=== PATIENT | female | born 1950 | race Caucasian/White ===

== ENCOUNTER 2018-02-16 15:07 | Emergency (ER) | payer MEDICARE ==
[2018-02-16 15:18] VITALS: BP 136/78
--- NOTE | 2018-02-16 15:46 | UC ---
Kristy Butler Gabriel, scribed for Casimiro Izquierdo MD on 02/16/18 at 1543 . Respiratory Complaint HPI - HPI Summary HPI Summary: This patient is a 67 year old F presenting to [facility] with a chief complaint of a dry cough that has been worse the past three days. She began coughing a week ago but states it has gotten worse. The patient rates the pain 0/10 in severity. Symptoms alleviated by nothing, she has taken mucinex with no relief. Patient reports post nasal drip, rhinorrhea, and clear nasal discharge. Patient denies fever, chills, and ear pain. Pt viveros exposure to sick persons but they recovered. Pt had bronchitis years ago. - History of Current Complaint Chief Complaint: UCRespiratory Stated Complaint: COUGH Time Seen by Provider: 02/16/18 15:34 Hx Obtained From: Patient Onset/Duration: Lasting Weeks, Still Present, Worse Since - 3 days Timing: Constant Severity Initially: Mild Severity Currently: Moderate Pain Intensity: 0 Pain Scale Used: 0-10 Numeric Character: Cough: Nonproductive Associated Signs And Symptoms: Positive: Negative - fever, chills, and ear pain - Allergies/Home Medications Allergies/Adverse Reactions: Allergies Allergy/AdvReac Type Severity Reaction Status Date / Time No Known Allergies Allergy Verified 08/25/16 16:45 PMH/Surg Hx/FS Hx/Imm Hx Cardiovascular History: Hypertension Cancer History: Breast Cancer - Surgical History Surgical History: Yes Surgery Procedure, Year, and Place: LEFT Breast partial mastectomy - Family History Known Family History: Positive: Cardiac Disease - CHF, Hypertension Negative: Diabetes - Social History Lives: With Family Alcohol Use: Rare Substance Use Type: None Smoking Status (MU): Never Smoked Tobacco Review of Systems ENT: Nasal Discharge, Other - post nasal drip Respiratory: Cough - dry All Other Systems Reviewed And Are Negative: Yes Physical Exam - Summary Physical Exam Summary: General: well-appearing, no pain distress Skin: warm, color reflects adequate perfusion, dry Head: normal Eyes: EOMI, AMENA ENT: positive rhinorrhea, mild posterior pharynx erythema Neck: supple, nontender Respiratory: CTA, breath sounds present, dry cough, Cardiovascular: RRR Abdomen: soft, nontender Bowel: present Musculoskeletal: normal, strength/ROM intact, no pedal edema Neurological: normal, sensory/motor intact, A&O x3 Psychological: affect/mood appropriate Triage Information Reviewed: Yes Vital Signs: Initial Vital Signs Temp 98.5 F 02/16/18 15:14 Pulse 86 02/16/18 15:14 Resp 18 02/16/18 15:14 BP 136/78 02/16/18 15:14 Pulse Ox 96 02/16/18 15:14 Vital Signs Reviewed: Yes UC Diagnostic Evaluation - Laboratory O2 Sat by Pulse Oximetry: 96 Respiratory Course/Dx - Course Course Of Treatment: Medications reviewed. Allergies noted. 7 DAYS OF URI/ BRONCHITIS SX. WE DISCUSSED SX TREATMENT AND THE USE OF ABX IN BRONCHITIS. WE DISCUSSED USUALLY START ABX WITH 10 DAYS OF SX. PATIENT PREFERS TO HAVE ABX RX AT THIS TIME. F/U PMD; REEVAL IF WORSE. - Differential Dx/Diagnosis Provider Diagnoses: BRONCHITIS Discharge - Sign-Out/Discharge Documenting (check all that apply): Discharge/Admit/Transfer - Discharge Plan Condition: Stable Disposition: HOME Prescriptions: Azithromyxin SID (NF) [Z-Sid (Zithromax) 250 mg tabs #6] 2 tab PO .TODAY, THEN 1 DAILY #6 tab Patient Education Materials: Acute Bronchitis (ED) Referrals: Catia Cordova NP [Primary Care Provider] - Additional Instructions: FOLLOW UP WITH YOUR DOCTOR. GET RECHECKED FOR ANY WORSENING OF YOUR CONDITION OR QUESTIONS OR CONCERNS. - Billing Disposition and Condition Condition: STABLE Disposition: HOME The documentation as recorded by the Kristy stewart Gabriel accurately reflects the service I personally performed and the decisions made by me, Casimiro Izquierdo MD.
== END 2018-02-16 15:45 | disposition home or self-care (01) ==
LOC: UCEAST 15:07
DX: J40 Bronchitis, not specified as acute or chronic (principal)
CPT/HCPCS: 99212; G0463

== ENCOUNTER 2018-06-21 15:54 | Emergency (ER) | payer MEDICARE ==
[2018-06-21 16:18] VITALS: BP 123/81
--- NOTE | 2018-06-21 17:00 | UC ---
Skin Complaint HPI - HPI Summary HPI Summary: Pt is a 68 year old female presenting to the with a chief complaint of a rash on her lower left side. The rash feels like a bad sunburn. She first noticed it about 2-3 hours ago, where she first noticed the pain. The pt denies any itching. The pt reports a hx of high cholesterol, hypertension, adult acne, breast cancer, as well as occasional alcohol use. The pt denies any smoking or drug use. The pt reports her sister has MS, and her other sister is prehypertensive. 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 Character: Pain, Redness Aggravating Factor(s): Clothing Associated Signs & Symptoms: Positive: Negative - itching, Rash Related History: Other: - potential shingles - Allergy/Home Medications Allergies/Adverse Reactions: Allergies Allergy/AdvReac Type Severity Reaction Status Date / Time No Known Allergies Allergy Verified 06/21/18 16:18 Home Medications: Home Medications Lecithin 1,200 mg PO DAILY 06/21/18 [History] l-Lysine 1,000 mg PO DAILY PRN 06/21/18 [History Confirmed 06/21/18] Review of Systems Constitutional: Negative - fever Skin: Negative - itching, Rash - left lower back and flank, painful All Other Systems Reviewed And Are Negative: Yes PMH/Surg Hx/FS Hx/Imm Hx Previously Healthy: No - hx of adult acne Endocrine History: Other Other Endocrine History: hyperlipidemia Cardiovascular History: Hypertension Cancer History: Breast Cancer - Surgical History Surgical History: Yes Surgery Procedure, Year, and Place: LEFT Breast partial mastectomy - Family History Known Family History: Positive: Cardiac Disease - CHF, Hypertension, Other - sister has MS, other sister is prehypertensive Negative: Diabetes - Social History Alcohol Use: Rare Substance Use Type: None Smoking Status (MU): Never Smoked Tobacco Physical Exam - Summary Physical Exam Summary: Appearance: Well-appearing, Well-nourished Skin: Erythematous vesicular rash in a roughly band-like distribution on left lower back and left flank c/w shingles. Eyes: Normal ENT: Normal Neck: Supple, nontender Respiratory: Clear to auscultation Cardiovascular: Normal S1, S2. No murmurs. Normal distal pulses in tibial and radial bilaterally. Abdomen: Soft, nontender Musculoskeletal: Normal, Strength/ROM Intact Neurological: Normal, A&Ox3 Psychiatric: Normal General: No acute distress Triage Information Reviewed: Yes Vital Signs: Initial Vital Signs Temp 98.8 F 06/21/18 16:13 Pulse 79 06/21/18 16:13 Resp 16 06/21/18 16:13 BP 123/81 06/21/18 16:13 Pulse Ox 100 06/21/18 16:13 Vital Signs Reviewed: Yes Course/Dx - Diagnoses Provider Diagnoses: Shingles Discharge - Sign-Out/Discharge Documenting (check all that apply): Patient Departure - Discharge Plan Condition: Stable Disposition: HOME Prescriptions: ValACYclovir (*) [Valtrex 1 GM(*)] 1 gm PO TID #21 tab Patient Education Materials: Shingles (ED), Shingles Vaccine (ED) Referrals: Catia Cordova NP [Primary Care Provider] - Additional Instructions: PLEASE FINISH ENTIRE DURATION OF MEDICATIONS DIRECTED. PLEASE FOLLOW UP WITH YOUR PRIMARY CARE DOCTOR WITHIN 1 WEEK. PLEASE USE GOOD HAND WASHING HYGIENE AND AVOID CONTACT WITH YOUNG INFANTS AND WOMEN UNTIL LESIONS ARE COMPLETELY CRUSTED OVER. - Attestation Statements Document Initiated by Scribe: Yes Documenting Scribe: Lauren Peterson Provider For Whom Scribe is Documenting (Include Credential): Basil Soriano MD. Scribe Attestation: Lauren Butler, scribed for Basil Soriano MD. on 06/21/18 at 1705.
--- NOTE | 2018-06-22 17:03 | UC ---
Discharge - Sign-Out/Discharge Documenting (check all that apply): Post-Discharge Follow Up All imaging exams completed and their final reports reviewed: No Studies - Discharge Plan Condition: Stable Disposition: HOME Prescriptions: ValACYclovir (*) [Valtrex 1 GM(*)] 1 gm PO TID #21 tab Patient Education Materials: Shingles (ED), Shingles Vaccine (ED) Referrals: Catia Cordova NP [Primary Care Provider] - Additional Instructions: PLEASE FINISH ENTIRE DURATION OF MEDICATIONS DIRECTED. PLEASE FOLLOW UP WITH YOUR PRIMARY CARE DOCTOR WITHIN 1 WEEK. PLEASE USE GOOD HAND WASHING HYGIENE AND AVOID CONTACT WITH YOUNG INFANTS AND WOMEN UNTIL LESIONS ARE COMPLETELY CRUSTED OVER. - Billing Disposition and Condition Condition: STABLE Disposition: Home
== END 2018-06-21 17:10 | disposition home or self-care (01) ==
LOC: UCEAST 15:54
DX: B02.9 Zoster without complications (principal); I10 Essential (primary) hypertension; E78.5 Hyperlipidemia, unspecified; Z79.899 Other long term (current) drug therapy
CPT/HCPCS: 99212; G0463

== ENCOUNTER 2018-11-17 16:36 | Emergency (ER) | payer MEDICARE ==
--- OUTSIDE RECORDS SUMMARY | 2018-11-17 16:42 | XMS REPORT | Continuity of Care Document ---
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 Payers Type Date Identification Numbers Payment Provider Subscriber Effective: Policy Number: [id number] BCBS Medicare Victor Manuel Centeno 2013 Group Number: [id number] [address]: [id number] [place] [id number] Advance Directives Description No Information Available Problems Date Description Provider Status Onset: 08/02/2010 Benign essential hypertension Active Onset: 04/02/2011 Mixed hyperlipidemia Sondra Cordova RN,LJ,MS Active Onset: 04/02/2011 Rosacea Sondra Cordova RN,LJ,MS Active Family History Date Family Member(s) Problem(s) Comments General Cancer, Breast General Heart Disease General Hypertension Father Heart Disease Father Hypertension First Brother Seizures First Sister Hypertension First Sister Diabetes, Adult Second Sister Multiple Sclerosis Paternal Uncles Heart Disease Paternal Aunts Cancer, Breast Social History Type Date Description Comments Sex Unknown Marital Status Occupation Downsized from [employer], currently unemployed Tobacco Use Start: Unknown End: denies cigarette use Unknown ETOH Use Rarely consumes alcohol Exercise Type/Frequency exercises sporadically Seat Belt/Car Seat always Seat Belt/Car Seat always uses seat belt Allergies, Adverse Reactions, Alerts Description No Known Drug Allergies Medications Medication Date Status Form Strength Qnty SIG Indications Ordering Provider Shingrix 04/19 Active Suspension 50mcg 1unit given one Art Rec s dose now, Sondra, give RN,GRINDER SET UP OPERATOR,MS second dose in 2-6months after first dose. Lisinopril-Hydroc 10/02 Active Tablets 10-12.5mg 90tab Take One Art hlorothi s Tablet By Lizett Amaro RN,GRINDER SET UP OPERATOR,MS Every Day Gabapentin 11/30 Active Capsules 100mg 360ca Take One ps Capsule By Lizett Amaro RN,GRINDER SET UP OPERATOR,MS Every Morning Take Three Capsules By Mouth AT Bedtime Simvastatin 08/02 Active Tablets 20mg 90tab Take One s Tablet By Lizett Amaro RN,GRINDER SET UP OPERATOR,MS Every Day Vitamin D-3 Active Tablets 2000Iu qd Minocycline HCL Active Tablets 100mg 1 po qd (rosacea) Anastrozole Active Tablets 1mg 1 by mouth every day Sodium Active Liquid Unknown Sulfacetamide/ fur Cleanser Calcium Antacid Active Chewtabs 500mg 2by mouth twice a day as needed Lysine HCL Active Tablets 500mg 3 by mouth every day Vitamin B-12 Active Tablets 1000mcg 2 by mouth every day Sodium 04/04 Hx Emulsion 10-5% , Sulf Sondra fur Cleanser - LJ FORDE,MS 04/03 Fasting Labs 10/04 Hx cmpArt lipids, Sondra, - TSH dx RN,GRINDER SET UP OPERATOR,MS 04/03 272.2, 401.1 fax [phone] Fasting Labs 03/30 Hx fasting lipid, Sondra, - cmp, dx RN,GRINDER SET UP OPERATOR,MS 04/01 401.1, 272.2 fax [phone] Lisinopril/Hydroc 12/24 Hx Tablets 10-12.5mg 90tab 1 po qd Art hlorothi s Wallace Amaro RN, FNP,MS 10/02 Lisinopril 11/19 Hx Tablets 10mg 90tab 1 po qd s Wallace Amaro RN, FNP,MS 12/24 Lisinopril 10/29 Hx Tablets 5mg 30tab 1 po qd s Wallace Amaro RN,GRINDER SET UP OPERATOR,MS 11/19 Hydrochlorothiazi 10/29 Hx Tablets 12.5mg 90tab 1 po qam Art, s Wallace Amaro RN, FNP,MS 12/24 Hydrochlorothiazi 07/25 Hx Tablets 25mg 30tab 1 tab po Art s qam Wallace Amaro RN, FNP,MS 10/29 Metronidazole 06/06 Hx Gel 0.75% 45GMX apply to 3 face once Sondra, - daily LJ FORDE,MS 01/21 Fexofenadine HCL 05/31 Hx Tablets 60mg 60tab 1 po bid s Wallace Amaro RN, FNP,MS 07/20 needs appt in october Metrogel Topical 03/17 Hx Gel .1% 60gm as directed Sondra, - bid LJ FORDE,MS 06/06 Franchesca 01/30 Hx Tablets 60mg 180ta one po bid bs Wallace Amaro RN, FNP,MS 05/31 Metrogel 03/01 Hx 0.075% 3unit apply s sparingly Sondra, - bid LJ FORDE,MS 03/17 Evista / Hx Unknown / - 03/26 Climara Pro Hx patch - 05/30 Boniva Hx Tablets 150mg 1Tabs 1 PO Q Unknown Month With - Water On 03/26 Stomach And Then Wait One Hour Before Drinking Eating Or Medication Finacea Hx Gel 15% - 03/[address] 40mg 1 PO qd Unknown / - 10/01 Cerave Hx Cream twice a Unknown / day - 10/19 Sodium Hx Emulsion 10-5% Unknown Sulfacetamide/Sul fur Cleanser - 10/20 Prolia Hx Solution 60mg/ml Im every Unknown / 6months - 03/29 Lidocaine HCL Hx Gel 2% use four Unknown /0000 times a - day to 09/25 area as needed Immunizations CPT Code Status Date Vaccine Lot # [id number] Given 10/04/2018 Shingrix (Shingles) Zoster Vaccine HZV, Recombinant, Subunit, Adj 94224 Given 07/29/2018 Influenza Vac, Quadrivalent, Split, 0.5mL Dosage, [place] Use 61314 Given 08/01/2017 Influenza Vaccine Quadrivalent Preser/Antibiotic Free [place] Use [id number] Given 08/14/2016 Fluzone Highdose Age 65 And Over Preservative & Antibiotic Free 86082 Given 10/02/2015 Prevnar 13 Pneumococal Conjugate Vaccine [id number] Q2037 Given 08/20/2015 Fluvirin Immunization 85571 Given 07/26/2015 Tdap (Adacel) Ages 7 And Above Only Q2038 Given 08/09/2014 Fluzone Trivalent Immunization Q2037 Given 08/07/2014 Fluvirin Immunization 53404 Given 10/04/2013 Pneumococcal 23 Immunization Adult Or [id number] Immunosuppressed Patient Q2035 Given 08/10/2013 Afluria Imunization Q2037 Given 08/07/2012 Fluvirin Immunization Q2036 Given 07/24/2011 Flulaval Immunization [id number] 25460 Given 10/29/2010 Zoster (Zostavax) [id number] 52436 Given 07/09/2010 Afluria Or Fluvirin Flu Vac Intramuscular [id number] 28241 Given 05/31/2007 Tdap (Adacel) Ages 7 And Above Only [id number] 90158 Given 02/24/2000 Immunization Td 7 Yrs Or Older Vital Signs Date Vital Result Comment 10/21/2018 8:51am Body Temperature 98.3 F Weight 145.00 lb Heart Rate 80 /min BP Systolic 110 mmHg BP Diastolic 70 mmHg Height 65.5 inches 5'5.50" BMI (Body Mass Index) 23.8 kg/m2 04/19/2018 9:06am Body Temperature 97.4 F Weight 145.00 lb Heart Rate 72 /min BP Systolic 130 mmHg BP Diastolic 80 mmHg Height 65.5 inches 5'5.50" BMI (Body Mass Index) 23.8 kg/m2 10/20/2017 9:08am Body Temperature 98.4 F Weight 145.00 lb Heart Rate 62 /min BP Systolic 100 mmHg BP Diastolic 60 mmHg Height 65.5 inches 5'5.50" BMI (Body Mass Index) 23.8 kg/m2 04/06/2017 9:25am Body Temperature 98.6 F Weight 149.00 lb Heart Rate 80 /min BP Systolic 118 mmHg BP Diastolic 70 mmHg Height 65.5 inches 5'5.50" BMI (Body Mass Index) 24.4 kg/m2 10/06/2016 9:01am Body Temperature 97.7 F Weight 150.00 lb BP Systolic 116 mmHg BP Diastolic 82 mmHg Height 65.5 inches 5'5.50" BMI (Body Mass Index) 24.6 kg/m2 04/03/2016 10:28am Body Temperature 98.5 F Weight 152.00 lb Heart Rate 58 /min BP Systolic 130 mmHg BP Diastolic 70 mmHg BP Systolic Recheck 124 mmHg BP Diastolic Recheck 74 mmHg Respiratory Rate 18 /min 10/02/2015 1:35pm Body Temperature 99.7 F Weight 149.00 lb Heart Rate 80 /min BP Systolic 120 mmHg BP Diastolic 80 mmHg Height 65.5 inches 5'5.50" BMI (Body Mass Index) 24.4 kg/m2 04/02/2015 8:53am Body Temperature 97.6 F Weight 154.00 lb Heart Rate 80 /min BP Systolic 120 mmHg BP Diastolic 72 mmHg Height 65.5 inches 5'5.50" BMI (Body Mass Index) 25.2 kg/m2 10/02/2014 10:34pm Body Temperature 98.7 F Weight 155.00 lb Heart Rate 62 /min BP Systolic 128 mmHg BP Diastolic 70 mmHg Respiratory Rate 18 /min 03/30/2014 9:33am Body Temperature 97.5 F Weight 155.00 lb Heart Rate 64 /min BP Systolic 124 mmHg BP Diastolic 60 mmHg Height 65.5 inches 5'5.50" BMI (Body Mass Index) 25.4 kg/m2 10/04/2013 8:58am Body Temperature 97.6 F Weight 155.00 lb Heart Rate 80 /min BP Systolic 120 mmHg BP Diastolic 70 mmHg Respiratory Rate 18 /min Height 65.5 inches 5'5.50" BMI (Body Mass Index) 25.4 kg/m2 Urine Dipstick - Blood NEGATIVE Urine Dipstick - Protein NEGATIVE Urine Dipstick - Glucose NEGATIVE Right Visual Acuity Distance 20/25 Left Visual Acuity Distance 20/20 Corrected 20/20 04/04/2013 9:04am Body Temperature 98.0 F Weight 155.00 lb Heart Rate 60 /min BP Systolic 124 mmHg BP Diastolic 80 mmHg Height 65.5 inches 5'5.50" BMI (Body Mass Index) 25.4 kg/m2 10/04/2012 9:03am Body Temperature 98.6 F Weight 156.00 lb Heart Rate 80 /min BP Systolic 130 mmHg BP Diastolic 72 mmHg Respiratory Rate 16 /min Height 65.5 inches 5'5.50" BMI (Body Mass Index) 25.6 kg/m2 03/30/2012 9:01am Body Temperature 98.6 F Weight 156.00 lb Heart Rate 80 /min BP Systolic 120 mmHg BP Diastolic 80 mmHg Respiratory Rate 16 /min Height 65.5 inches 5'5.50" BMI (Body Mass Index) 25.6 kg/m2 09/26/2011 8:19am Body Temperature 98.3 F Weight 152.00 lb Heart Rate 80 /min BP Systolic 120 mmHg BP Diastolic 80 mmHg Height 65.5 inches 5'5.50" BMI (Body Mass Index) 24.9 kg/m2 03/27/2011 9:40am Body Temperature 98.4 F Weight 156.00 lb Heart Rate 80 /min BP Systolic 116 mmHg BP Diastolic 70 mmHg Height 65.5 inches 5'5.50" BMI (Body Mass Index) 25.6 kg/m2 12/24/2010 9:14am Body Temperature 98.8 F Weight 160.00 lb Heart Rate 80 /min BP Systolic 124 mmHg BP Diastolic 80 mmHg Height 65.5 inches 5'5.50" BMI (Body Mass Index) 26.2 kg/m2 11/19/2010 9:23am Body Temperature 98.6 F Weight 159.00 lb Heart Rate 80 /min BP Systolic 130 mmHg BP Diastolic 90 mmHg BP Systolic Recheck 140 mmHg BP Diastolic Recheck 90 mmHg Respiratory Rate 16 /min 10/29/2010 9:09am Body Temperature 98.1 F Weight 156.00 lb Heart Rate 80 /min BP Systolic 142 mmHg BP Diastolic 88 mmHg BP Systolic Recheck 140 mmHg BP Diastolic Recheck 90 mmHg Respiratory Rate 16 /min 07/25/2010 9:12am Body Temperature 97.6 F Weight 153.00 lb Heart Rate 80 /min BP Systolic 140 mmHg BP Diastolic 90 mmHg 07/09/2010 10:57am Body Temperature 97.7 F Weight 156.00 lb Heart Rate 62 /min BP Systolic 140 mmHg BP Diastolic 90 mmHg 07/24/2009 8:04am Body Temperature 97.3 F Weight 151.00 lb Heart Rate 88 /min BP Systolic 132 mmHg BP Diastolic 90 mmHg Height 64 inches 5'4" BMI (Body Mass Index) 25.9 kg/m2 09/19/2008 1:51pm Body Temperature 98.5 F Weight 152.00 lb Heart Rate 80 /min BP Systolic 130 mmHg BP Diastolic 82 mmHg 06/06/2008 3:35pm Body Temperature 98.6 F Weight 153.00 lb Heart Rate 68 /min BP Systolic 150 mmHg BP Diastolic 90 mmHg 05/31/2007 3:32pm Body Temperature 98.7 F Weight 154.00 lb Heart Rate 80 /min BP Systolic 130 mmHg BP Diastolic 80 mmHg 08/24/2006 1:27pm Weight 150.00 lb BP Systolic 120 mmHg BP Diastolic 80 mmHg Respiratory Rate 16 /min 03/10/2006 3:54pm Body Temperature 98.7 F Weight 153.00 lb Heart Rate 80 /min BP Systolic 130 mmHg BP Diastolic 70 mmHg Respiratory Rate 20 /min 02/04/2005 4:55pm Body Temperature 98.7 F Weight 147.00 lb Heart Rate 80 /min BP Systolic 124 mmHg BP Diastolic 82 mmHg BP Systolic Recheck 120 mmHg BP Diastolic Recheck 80 mmHg Respiratory Rate 20 /min 02/01/2004 3:56pm Body Temperature 96.9 F Weight 161.00 lb Heart Rate 72 /min BP Systolic 138 mmHg BP Diastolic 76 mmHg 01/30/2003 5:33pm Body Temperature 98.6 F Weight 164.00 lb Heart Rate 76 /min BP Systolic 130 mmHg BP Diastolic 78 mmHg Respiratory Rate 18 /min Results Test Date Facility Test Result H/L Range Note Comprehensive Met Panel[facility] 10/21/2018 [facility] Sodium 140 mmol/L 135- 146 1 Potassium 4.1 mmol/L 3.5-5.2 Chloride# 99 mmol/L 97-110 2 Carbon Dioxide 32 mmol/L 24-34 Glucose 101 mg/dL 70-105 BUN 16 mg/dL 6-26 Creatinine 0.6 mg/dL 0.5-1.4 Calcium 9.6 mg/dL 8.5-10.2 Total Protein 6.5 g/dL 6.0-8.0 Albumin 4.3 g/dL 3.6-4.9 Globulin 2.2 g/dL 2.0-3.5 A/G Ratio 2.0 Ratio 1.0-2.2 Total Bilirubin 0.6 mg/dL 0.1-1.3 Alkaline Phosphatase 71 U/L 24-140 Alt 15 U/L 3-42 Ast 22 U/L 8-42 Selene Egfr >60 >60 3 Non Selene Egfr >60 >60 4 Anion Gap 9 mmol/L 5-15 5 Lipid 10/21/2018 [facility] Cholesterol 203 mg/dL High 50-199 Triglycerides 58 mg/dL 30-200 HDL 83 mg/dL 35-85 6 Chol/ HDL Ratio 2.4 ratio Low 3.7-5.6 VLDL 12 mg/dL 2-29 LDL (Calc) 109 mg/dL High 20-99 7 Lipid 04/19/2018 [facility] Cholesterol 186 mg/dL 50-199 Triglycerides 63 mg/dL 30-200 HDL 79 mg/dL 35-85 8 Chol/ HDL Ratio 2.3 ratio Low 3.7-5.6 VLDL 13 mg/dL 2-29 LDL (Calc) 94 mg/dL 20-99 9 Comprehensive Met Panel-[facility] 04/19/2018 [facility] Sodium 140 mmol/L 135- 146 10 Potassium 4.0 mmol/L 3.5-5.2 Chloride# 102 mmol/L 97-110 11 Carbon Dioxide 30 mmol/L 24-34 Glucose 100 mg/dL 70-105 BUN 14 mg/dL 6-26 Creatinine 0.7 mg/dL 0.5-1.4 Calcium 9.4 mg/dL 8.5-10.2 Total Protein 6.0 g/dL 6.0-8.0 Albumin 4.0 g/dL 3.6-4.9 Globulin 2.0 g/dL 2.0-3.5 A/G Ratio 2.0 Ratio 1.0-2.2 Total Bilirubin 0.5 mg/dL 0.1-1.3 Alkaline Phosphatase 70 U/L 24-140 Alt 18 U/L 3-42 Ast 24 U/L 8-42 Selene Egfr >60 >60 12 Non Selene Egfr >60 >60 13 Anion Gap 8 mmol/L 5-15 14 Laboratory test finding 04/19/2018 [facility] TSH 2.68 uIU/mL 0.35-4.94 Lipid 10/20/2017 [facility] Cholesterol 201 mg/dL High 50-199 Triglycerides 62 mg/dL 30-200 HDL 82 mg/dL 35-85 15 Chol/ HDL Ratio 2.5 ratio Low 3.7-5.6 VLDL 12 mg/dL 2-29 LDL (Calc) 107 mg/dL High 20-99 16 Comprehensive Met Panel-[facility] 10/20/2017 [facility] Sodium 140 mmol/L 135- 146 17 Potassium 4.1 mmol/L 3.5-5.2 Chloride# 103 mmol/L 97-110 18 Carbon Dioxide 27 mmol/L 24-34 Glucose 97 mg/dL 70-105 Creatinine 0.7 mg/dL 0.5-1.4 Calcium 9.5 mg/dL 8.5-10.2 Total Protein 6.6 g/dL 6.0-8.0 Albumin 4.5 g/dL 3.6-4.9 Globulin 2.1 g/dL 2.0-3.5 A/G Ratio 2.1 Ratio 1.0-2.2 Total Bilirubin 0.4 mg/dL 0.1-1.3 Alkaline Phosphatase 79 U/L 24-140 Alt 13 U/L 3-42 Ast 20 U/L 8-42 Selene Egfr >60 >60 19 Non Selene Egfr >60 >60 20 Anion Gap 10 mmol/L 7-16 21 BUN 17 mg/dL 6-26 Lipid 04/06/2017 [facility] Cholesterol 195 mg/dL 50-199 Triglycerides 58 mg/dL 30-200 HDL 85 mg/dL 35-85 22 Chol/ HDL Ratio 2.3 ratio Low 3.7-5.6 VLDL 12 mg/dL 2-29 LDL (Calc) 98 mg/dL 20-99 23 Comprehensive Metabolic (CMP) 04/06/2017 [facility] Sodium 137 mmol/L 135- 146 24 Potassium 3.8 mmol/L 3.5-5.2 Chloride# 101 mmol/L 97-110 25 Carbon Dioxide 27 mmol/L 24-34 Glucose 103 mg/dL 70-105 BUN 14 mg/dL 6- Creatinine 0.7 mg/dL 0.5-1.4 Calcium 9.5 mg/dL 8.5-10.2 Total Protein 6.6 g/dL 6.0-8.0 Albumin 4.3 g/dL 3.6-4.9 Globulin 2.3 g/dL 2.0-3.5 A/G Ratio 1.9 Ratio 1.0-2.2 Total Bilirubin 0.5 mg/dL 0.1-1.3 Alkaline Phosphatase 82 U/L 24-140 Alt 15 U/L 3-42 Ast 21 U/L 8-42 Selene Egfr >60 >60 26 Non Selene Egfr >60 >60 27 Anion Gap 13 mmol/L 7-16 28 Laboratory test 04/06/2017 [facility] TSH 2.54 uIU/mL 0.35-4.94 finding CBS W/Automated 12/16/2016 [facility] White Blood 6.0 K/ uL N 3.1-10.7 29 Diff (315)- - Count Red Blood Count 4.60 M/uL N 3.90-5.40 Hemoglobin 14.0 gm/dL N 11.6-15.8 Hematocrit 42.8 % N 36.0-46.1 Mean Cell Volume 93.0 fl N 80.9-99.0 Mean Corpuscular HGB 30.4 pg N 25.9-32.7 Mean Corpuscular HGB Conc 32.7 g/dL N 30.8-34.3 Platelet Count 196 K/uL N 150-400 Red Cell Distri Width SD 43.3 fl N 3-47 Red Cell Distri Width %CV 13.0 % N 11.7-14.4 Mean Platelet Volume 9.8 fL N 8.9-12.4 Neut% 62.0 % N 40.4-72.8 Lymph % 24.0 % N 20.0-42.0 [place] % 12.2 % N 4.3-13.2 Eo% 1.3 % N 0.0-6.6 Bas% 0.5 % N 0.0-1.1 Neut# 3.70 K/uL N 1.8-7.0 Lymph # 1.43 K/uL N 1.0-4.0 [place] # 0.73 K/uL N 0.3-0.9 Eos # 0.08 K/uL N 0.0-0.5 Baso # 0.03 K/uL N 0.0-0.1 Comprehensive Metabolic 12/16/2016 [facility] Glucose 114 mg/dL High 74-106 Panel (315)- - BUN 15 mg/dL N 7-18 Creatinine 0.9 mg/dL N 0.6-1.3 Glom Filtration Rate, Estimate >60 mL/min >60 If >60 mL/min >60 30 BUN/Creat 16.6 ratio Sodium 142 mmol/L N 136-145 Potassium 4.3 mmol/L N 3.5-5.1 Chloride 104 mmol/L N 98-107 Carbon Dioxide 33 mmol/L High 21-32 Anion Gap 5 mEq/L Low 8-16 Calcium 8.9 mg/dL N 8.5-10.1 Total Protein 6.8 g/dL N 6.4-8.2 Albumin 3.5 g/dL N 3.4-5.0 Globulin 3.3 g/dL N 1.9-4.3 Alb/Glob 1.1 ratio Bilirubin,Total 0.2 mg/dL N 0.2-1.0 Sgot/Ast 25 U/L N 15-37 SGPT/Alt 26 U/L N 12-78 Alkaline Phosphatase 101 U/L N 45-117 Laboratory test 12/16/2016 [facility] CA 27.29 15.0 U/mL 0.0-38.6 31 finding (315)- - Comprehensive 10/06/2016 [facility] Sodium 135 mmol/L 134-142 Metabolic (CMP) Potassium 3.9 mmol/L 3.5-5.2 Chloride 100 mmol/L 97-109 Carbon Dioxide 29 mmol/L 24-34 Glucose 95 mg/dL 70-105 BUN 14 mg/dL 6-26 Creatinine 0.7 mg/dL 0.5-1.4 Calcium 9.2 mg/dL 8.5-10.2 Total Protein 6.7 g/dL 6.0-8.0 Albumin 4.0 g/dL 3.6-4.9 Globulin 2.7 g/dL 2.0-3.5 A/G Ratio 1.5 Ratio 1.0-2.2 Total Bilirubin 0.5 mg/dL 0.1-1.3 Alkaline Phosphatase 77 U/L 24-140 Alt 12 U/L 3-42 Ast 20 U/L 8-42 Anion Gap 10 mmol/L 6-14 Selene Egfr >60 >60 32 Non Selene Egfr >60 >60 33 Lipid 10/06/2016 [facility] Cholesterol 188 mg/dL 50-199 Triglycerides 62 mg/dL 30-200 HDL 77 mg/dL 35-85 34 Chol/ HDL Ratio 2.4 ratio Low 3.7-5.6 VLDL 12 mg/dL 2-29 LDL (Calc) 99 mg/dL 20-99 35 Laboratory test finding 10/06/2016 [facility] TSH 2.27 uIU/mL 0.35-4.94 CBC With Auto Diff 10/06/2016 [facility] WBC 5.5 K/uL 4.1-11.0 RBC 4.62 M/uL 4.00-5.40 Hemoglobin 14.1 gm/dL 12.0-16.0 Hematocrit 41.8 % 36.0-47.0 MCV 90.5 fL 80.0-97.0 MCH 30.4 pg 27.0-32.0 MCHC 33.6 g/dL 32.0-36.0 RDW 13.6 % 11.5-14.5 PLT Count 209 K/ul 140-400 Neutrophil 72.6 % 35.0-75.0 Lymphocyte 17.5 % 16.0-52.0 Monocyte 8.9 % 2.0-10.0 Eosinophil 0.4 % 0.0-5.0 Basophil 0.6 % 0.0-4.0 Abs Neutrophils 4.0 K/uL 2.1-8.0 Abs Lymphocytes 1.0 K/uL 0.8-5.5 Abs Monocytes 0.5 K/uL 0.1-1.0 Abs Eosinophils 0.0 K/uL 0.0-0.5 Abs Basophils 0.0 K/uL 0.0-0.3 Lipid 04/03/2016 [facility] Cholesterol 199 mg/dL 50-199 Triglycerides 125 mg/dL 30-200 HDL 73 mg/dL 35-85 36 Chol/ HDL Ratio 2.7 ratio Low 3.7-5.6 VLDL 25 mg/dL 2-29 LDL (Calc) 101 mg/dL High 20-99 37 Comprehensive Metabolic (CMP) 04/03/2016 [facility] Sodium 135 mmol/L 134- 142 Potassium 4.0 mmol/L 3.5-5.2 Chloride 98 mmol/L 97-109 Carbon Dioxide 30 mmol/L 24-34 Glucose 98 mg/dL 70-105 BUN 19 mg/dL 6-26 Creatinine 0.6 mg/dL 0.5-1.4 Calcium 9.3 mg/dL 8.5-10.2 Total Protein 6.7 g/dL 6.0-8.0 Albumin 4.1 g/dL 3.6-4.9 Globulin 2.6 g/dL 2.0-3.5 A/G Ratio 1.6 Ratio 1.0-2.2 Total Bilirubin 0.3 mg/dL 0.1-1.3 Alkaline Phosphatase 86 U/L 24-140 Alt 15 U/L 3-42 Ast 20 U/L 8-42 Anion Gap 11 mmol/L 6-14 Selene Egfr >60 >60 38 Non Selene Egfr >60 >60 39 Laboratory test finding 04/03/2016 [facility] TSH 2.68 uIU/mL 0.35-4.94 Lipid 10/02/2015 [facility] Cholesterol 175 mg/dL 50-199 Triglycerides 106 mg/dL 30-200 HDL 71 mg/dL 35-85 40 Chol/ HDL Ratio 2.5 ratio Low 3.7-5.6 VLDL 21 mg/dL 2-29 LDL (Calc) 83 mg/dL 20- 41 Comprehensive Metabolic (CMP) 10/02/2015 [facility] Sodium 135 mmol/L 134- 142 Potassium 4.0 mmol/L 3.5-5.2 Chloride 99 mmol/L 97-109 Carbon Dioxide 33 mmol/L 24-34 Glucose 124 mg/dL High 70-105 BUN 15 mg/dL 6 Creatinine 0.6 mg/dL 0.5-1.4 Calcium 9.1 mg/dL 8.5-10.2 Total Protein 6.1 g/dL 6.0-8.0 Albumin 3.9 g/dL 3.6-4.9 Globulin 2.2 g/dL 2.0-3.5 A/G Ratio 1.8 Ratio 1.0-2.2 Total Bilirubin 0.2 mg/dL 0.1-1.3 Alkaline Phosphatase 77 U/L 24-140 Alt 9 U/L 3-42 Ast 15 U/L 8-42 Anion Gap 7 mmol/L 6- Selene Egfr >60 >60 42 Non Selene Egfr >60 >60 43 Lipid 04/02/2015 [facility] Cholesterol 187 mg/dL 50-199 Triglycerides 48 mg/dL 30-200 HDL 86 mg/dL High 44 Chol/ HDL Ratio 2.2 ratio Low 3.7-5.6 VLDL 10 mg/dL 2-29 LDL (Calc) 91 mg/dL -99 45 Comprehensive Metabolic (CMP) 04/02/2015 [facility] Sodium 138 mmol/L 134- 142 Potassium 4.6 mmol/L 3.5-5.2 Chloride 103 mmol/L 97-109 Carbon Dioxide 29 mmol/L 24-34 Glucose 97 mg/dL 70-105 BUN 16 mg/dL 6-26 Creatinine 0.8 mg/dL 0.5-1.4 Calcium 9.3 mg/dL 8.5-10.2 Total Protein 6.5 g/dL 6.0-8.0 Albumin 4.3 g/dL 3.6-4.9 Globulin 2.2 g/dL 2.0-3.5 A/G Ratio 2.0 Ratio 1.0-2.2 Total Bilirubin 0.4 mg/dL 0.1-1.3 Alkaline Phosphatase 58 U/L 24-140 Alt 9 U/L 3-42 Ast 18 U/L 8-42 Anion Gap 11 mmol/L 6-14 Selene Egfr >60 >60 46 Non Selene Egfr >60 >60 47 Laboratory test finding 04/02/2015 [facility] Vitamin B12 >1500 pg/mL High 180-914 TSH 1.87 uIU/mL 0.35-4.94 Comprehensive Metabolic (CMP) 10/02/2014 [facility] Sodium 138 mmol/L 134- 142 Potassium 4.0 mmol/L 3.5-5.2 Chloride 102 mmol/L 97-109 Carbon Dioxide 28 mmol/L 24-34 Glucose 90 mg/dL 70-105 BUN 14 mg/dL 6-26 Creatinine 0.7 mg/dL 0.5-1.4 Calcium 9.3 mg/dL 8.5-10.2 Total Protein 6.5 g/dL 6.0-8.0 Albumin 4.1 g/dL 3.6-4.9 Globulin 2.4 g/dL 2.0-3.5 A/G Ratio 1.7 Ratio 1.0-2.2 Total Bilirubin 0.4 mg/dL 0.1-1.3 Alkaline Phosphatase 48 U/L 24-140 Alt 13 U/L 3-42 Ast 20 U/L 8-42 Anion Gap 12 mmol/L 6-14 Selene Egfr >60 >60 48 Non Selene Egfr >60 >60 49 Lipid 10/02/2014 [facility] Cholesterol 175 mg/dL 50-199 Triglycerides 54 mg/dL 30-200 HDL 84 mg/dL 35-85 50 Chol/ HDL Ratio 2.1 ratio Low 3.7-5.6 VLDL 11 mg/dL 2-29 LDL (Calc) 80 mg/dL 20-99 51 Laboratory test finding 03/30/2014 [facility] TSH 1.76 uIU/mL 0.34-5.60 Vit D,25 Hydroxy 67 ng/mL 31-100 Hepatitis C Virus Antibody Non reactive Non reactive Comprehensive Metabolic (CMP) 03/30/2014 [facility] Sodium 136 mmol/L 134- 142 Potassium 4.7 mmol/L 3.5-5.2 Chloride 105 mmol/L 97-109 Carbon Dioxide 29 mmol/L 24-34 Glucose 96 mg/dL 70-105 BUN 16 mg/dL 6-26 Creatinine 0.8 mg/dL 0.5-1.4 Calcium 9.3 mg/dL 8.5-10.2 Total Protein 6.7 g/dL 6.0-8.0 Albumin 4.4 g/dL 3.6-4.9 Globulin 2.3 g/dL 2.0-3.5 A/G Ratio 1.9 Ratio 1.0-2.2 Total Bilirubin 0.4 mg/dL 0.1-1.3 Alkaline Phosphatase 48 U/L 24-140 Alt 14 U/L 3-42 Ast 21 U/L 8-42 Anion Gap 7 mmol/L 6-14 Selene Egfr >60 >60 52 Non Selene Egfr >60 >60 53 Lipid 03/30/2014 [facility] Cholesterol 176 mg/dL 50-199 Triglycerides 50 mg/dL 30-200 HDL 83 mg/dL 35-85 54 Chol/ HDL Ratio 2.1 ratio Low 3.7-5.6 VLDL 10 mg/dL 2-29 LDL (Calc) 83 mg/dL 20-99 55 Lipid 10/04/2013 [facility] Cholesterol 169 mg/dL 50-199 Triglycerides 43 mg/dL 30-200 HDL 81 mg/dL 35-85 56 Chol/ HDL Ratio 2.1 ratio Low 3.7-5.6 VLDL 9 mg/dL 2-29 LDL (Calc) 79 mg/dL 20-99 57 Comprehensive Metabolic (CMP) 10/04/2013 [facility] Sodium 136 mmol/L 134- 142 Potassium 4.2 mmol/L 3.5-5.2 Chloride 101 mmol/L 97-109 Carbon Dioxide 31 mmol/L 24-34 Glucose 90 mg/dL 70-105 BUN 15 mg/dL 6-26 Creatinine 0.7 mg/dL 0.5-1.4 Calcium 9.1 mg/dL 8.5-10.2 Total Protein 6.4 g/dL 6.0-8.0 Albumin 4.2 g/dL 3.6-4.9 Globulin 2.2 g/dL 2.0-3.5 A/G Ratio 1.9 Ratio 1.0-2.2 Total Bilirubin 0.4 mg/dL 0.1-1.3 Alkaline Phosphatase 47 U/L 24-140 Alt 13 U/L 3-42 Ast 20 U/L 8-42 Anion Gap 8 mmol/L 6-14 Selene Egfr >60 >60 58 Non Selene Egfr >60 >60 59 Laboratory test 09/02/2013 [facility] Stool Occult NEG X 3 finding Blood-RL Laboratory test 04/04/2013 [facility] TSH 2.500 mIU/L (0.360-4. 60, 61 finding 170) Vit D,25 Hydroxy 56 NG/ML (31-100) 62 Comprehensive Metabolic (CMP) 04/04/2013 [facility] Sodium 139 mmol/L (136- 145) Potassium 4.3 mmol/L (3.6-5.2) Chloride 104 mmol/L (100-108) Co2 30 mmol/L (22-31) Anion Gap 5 mmol/L Low (7-16) Urea Nitrogen 18 mg/dL (7-24) Creatinine 0.8 mg/dL (0.6-1.0) BUN/Creat Ratio 22.5 RATIO High (10.0-20.0) Glucose 93 mg/dL (70-99) Calcium 8.9 mg/dL (8.4-10.2) Total Protein 7.2 g/dL (6.4-8.2) Albumin 4.1 g/dL (3.2-4.5) Globulin 3.1 g/dL (2.7-4.3) Alb/Glob Ratio 1.3 RATIO Alkaline Phosphatase 77 U/L (50-136) Bilirubin,Total 0.4 mg/dL (0.0-1.0) Ast (Sgot) 22 U/L (11-39) Alt (SGPT) 25 U/L (12-78) 63 GFR 77 ML/MIN/1.73M2 (>59) GFR ( Amer) >90 ML/MIN/1.73M2 (>59) GFR Interpretation (SEE NOTE) 64 Lipid 04/04/2013 [facility] Cholesterol @ 213 mg/dL High (0-200) Triglyceride @ 87 mg/dL (30-200) HDL Cholesterol @ 94 mg/dL (>40) 65 Chol/HDL Ratio 2.3 RATIO 66 LDL Chol (Calc) 102 mg/dL (<130) 67 Comprehensive Metabolic (CMP) 09/26/2011 [facility] Sodium 140 mmol/L 135- 144 Potassium 4.7 mmol/L 3.6-5.2 Chloride 102 mmol/L 97-110 Carbon Dioxide 31 mmol/L 23-32 Glucose 96 mg/dL 70-105 BUN 16 mg/dL 6-22 Creatinine 0.8 mg/dL 0.5-1.3 Calcium 9.7 mg/dL 8.6-10.2 BUN/CR 20 ratio 12-20 Total Protein 6.6 g/dL 5.8-7.8 Albumin 3.9 g/dL 3.5-4.8 Globulin 2.7 g/dL 2.0-3.5 A/G Ratio 1.4 Ratio 1.0-2.2 Total Bilirubin 0.6 mg/dL 0.3-1.2 Alkaline Phosphatase 51 U/L 24-140 Alt 20 U/L 5-45 Ast 26 U/L 12-40 Anion Gap 12 mmol/L 8-16 Non Selene Egfr >60 >60 68 Selene Egfr >60 >60 69 Lipid 09/26/2011 [facility] Cholesterol 224 mg/dL High 50-199 Triglycerides 58 mg/dL 10-150 HDL 94 mg/dL High 35-85 70 Chol/ HDL Ratio 2.4 ratio Low 3.7-5.6 VLDL 12 mg/dL 2-29 LDL (Calc) 118 mg/dL 20-129 71 Laboratory test finding 09/26/2011 [facility] TSH 1.54 uIU/mL 0.34-5.60 Vitamin B12 279 pg/mL 180-914 CPK 68 U/L 38-234 Lipid 03/31/2011 [facility] Cholesterol 186 mg/dL 50-199 Triglycerides 47 mg/dL 10-150 HDL 79 mg/dL 35-85 72 Chol/ HDL Ratio 2.4 ratio Low 3.7-5.6 VLDL 9 mg/dL 2-29 LDL (Calc) 98 mg/dL 20-129 73 Comprehensive Metabolic (CMP) 03/31/2011 [facility] Sodium 140 mmol/L 135- 144 Potassium 4.8 mmol/L 3.6-5.2 Chloride 102 mmol/L 97-110 Carbon Dioxide 30 mmol/L 23-32 Glucose 92 mg/dL 70-105 BUN 12 mg/dL 6-22 Creatinine 0.8 mg/dL 0.5-1.3 Calcium 9.8 mg/dL 8.6-10.2 BUN/CR 15 ratio 12-20 Total Protein 6.7 g/dL 5.8-7.8 Albumin 3.9 g/dL 3.5-4.8 Globulin 2.8 g/dL 2.0-3.5 A/G Ratio 1.4 Ratio 1.0-2.2 Total Bilirubin 0.5 mg/dL 0.3-1.2 Alkaline Phosphatase 42 U/L 24-140 Alt 18 U/L 5-45 Ast 24 U/L 12-40 Anion Gap 13 mmol/L 8-16 Non Selene Egfr >60 >60 74 Selene Egfr >60 >60 75 Comprehensive Metabolic (CMP) 03/27/2011 [facility] Sodium 139 mmol/L 135- 144 Potassium 4.6 mmol/L 3.6-5.2 Chloride 105 mmol/L 97-110 Carbon Dioxide 29 mmol/L 23-32 Glucose 106 mg/dL High 70-105 BUN 14 mg/dL 6-22 Creatinine 0.8 mg/dL 0.5-1.3 Calcium 9.0 mg/dL 8.6-10.2 BUN/CR 18 ratio 12-20 Total Protein 6.1 g/dL 5.8-7.8 Albumin 4.1 g/dL 3.5-4.8 Globulin 2.0 g/dL 2.0-3.5 A/G Ratio 2.1 Ratio 1.0-2.2 Total Bilirubin 1.2 mg/dL 0.3-1.2 Alkaline Phosphatase 42 U/L 24-140 Alt 21 U/L 5-45 Ast 37 U/L 12-40 Anion Gap 10 mmol/L 8-16 Non Selene Egfr >60 >60 76 Selene Egfr >60 >60 77 Rejected Test Reason Cancelled Lipid 03/27/2011 [facility] Cholesterol 170 mg/dL 50-199 Triglycerides 62 mg/dL 10-150 HDL 78 mg/dL 35-85 78 Chol/ HDL Ratio 2.2 ratio Low 3.7-5.6 VLDL 12 mg/dL 2-29 LDL (Calc) 80 mg/dL 20-129 79 Rejected Test Reason Cancelled Basic (BMP) 12/24/2010 [facility] Na 139 mmol/L 135-144 K 4.9 mmol/L 3.6-5.2 CL 101 mmol/L 97-110 Co2 32 mmol/L 23-32 Glu 102 mg/dL 70-105 BUN 16 mg/dL 6-22 Creat 0.8 mg/dL 0.5-1.3 CA 9.6 mg/dL 8.6-10.2 Anion Gap 11 mmol/L 8-16 BUN/CR 20 ratio 12-20 NAAeGFR >60 >60 80 AAeGFR >60 >60 81 Lipid Panel 10/29/2010 [facility] (Do not Use) Cholesterol 212 mg/dL High 50-199 82 [facility] [place] [address] [phone] Triglycerides 50 mg/dL 10-150 HDL 110 mg/dL High 35-85 83 Chol/HDL Ratio 1.9 Ratio Low 3.7-5.6 84 VLDL 10 mg/dL 2-29 LDL (Calc) 92 mg/dL 20-129 85 [facility] 10/29/2010 [facility] (Do not Use) Sodium 141 mmol/L 135-144 [facility] [place] [address] [phone] Potassium 4.0 mmol/L 3.6-5.2 Chloride 102 mmol/L 97-110 Carbon Dioxide 33 mmol/L High 23-32 Glucose 106 mg/dL High 70-105 BUN 14 mg/dL 6-22 Creatinine 0.9 mg/dL 0.5-1.3 BUN/CR 16 Ratio Calcium 10.0 mg/dL 8.6-10.2 Total Protein 6.9 g/dL 5.8-7.8 Albumin 4.1 g/dL 3.5-4.8 Globulin 2.8 g/dL 2.0-3.5 A/G Ratio 1.5 Ratio 1.0-2.2 Total Bilirubin 0.7 mg/dL 0.3-1.2 Alkaline Phosphatase 54 U/L 24-140 Alt 26 U/L 5-45 Ast 34 U/L 12-40 Anion Gap 10 mmol/L 8-16 GFR Calculation > 60 mL/min 60-175 86 GFR For > 60 mL/min 60-175 87 [facility] 07/25/2010 [facility] (Do not Use) Sodium 139 mmol/L 135-144 [facility] [place] [address] [phone] Potassium 4.3 mmol/L 3.6-5.2 Chloride 103 mmol/L 97-110 Carbon Dioxide 32 mmol/L 23-32 Glucose 103 mg/dL Abnormal (70-99) BUN 12 mg/dL 6-22 Creatinine 0.8 mg/dL 0.5-1.3 BUN/CR 15 Ratio Calcium 9.5 mg/dL 8.6-10.2 Total Protein 6.4 g/dL 5.8-7.8 Albumin 3.8 g/dL 3.5-4.8 Globulin 2.6 g/dL 2.0-3.5 A/G Ratio 1.5 Ratio 1.0-2.2 Total Bilirubin 0.7 mg/dL 0.3-1.2 Alkaline Phosphatase 59 U/L 24-140 Alt 23 U/L 5-45 Ast 25 U/L 12-40 Anion Gap 8 mmol/L 8-16 GFR Calculation > 60 mL/min 60-175 88 GFR For > 60 mL/min 60-175 89 Lipid Panel 07/25/2010 [facility] (Do not Use) Cholesterol 271 mg/dL High 50-199 [facility] [place] [address] [phone] Triglycerides 71 mg/dL 10-150 HDL 80 mg/dL 35-85 90 Chol/HDL Ratio 3.4 Ratio Low 3.7-5.6 91 VLDL 14 mg/dL 2-29 LDL (Calc) 177 mg/dL High 20-129 92 Laboratory test 07/25/2010 [facility] (Do not Use) TSH 1.54 uIU/ml 0.34 -5.60 finding [facility] [place] [address] [phone] CBC With Auto Diff 07/25/2010 [facility] (Do not Use) WBC 6.0 K/ul 4.0- 10.9 [facility] [place] [address] [phone] RBC 4.65 M/ul 4.20-5.40 Hemoglobin 14.3 GM/dl 12.5-16.0 Hematocrit 42.5 % 36.0-47.0 MCV 91.4 FL 80.0-97.0 MCH 30.7 pg 27.0-31.0 MCHC 33.6 g/dL 32.0-36.0 RDW 13.4 % 11.5-14.5 Platelet Count 258 K/ul 140-440 Neutrophils 63.2 % 50-70 Lymphocytes 25.3 % 20-44 Monocytes 9.5 % High 2-9 Eosinophil 1.4 % 0-4 Basophil 0.6 % 0-2 Absolute Neutrophils 3.8 K/ul 2.05-7.63 Absolute Lymphocytes 1.5 K/ul 0.8-4.8 Absolute Monocytes 0.6 K/ul 0.1-1.0 Absolute Eosinophils 0.1 K/ul 0.1-0.5 Absolute Basophils 0.0 K/ul 0.0-0.3 Hematology Comment (Comm2) N/A Laboratory test 07/25/2010 [facility] (Do not Use) Vitamin D, 25 52 ng/mL 31-100 finding [facility] [place] [address] [phone] CBC 02/01/2004 [facility] (Do not Use) WBC 8.1 K/ul 4.1-10.9 [facility] [place] [address] [phone] RBC 4.64 M/ul 4.20-6.30 Hemoglobin 13.8 GM/dl 12.5-15.0 Hematocrit 42.0 % 37.0-51.0 MCV 90.3 FL 80.0-97.0 MCH 29.7 pg 26.0-32.0 MCHC 32.9 g/dL 31.0-36.0 RDW 12.1 % 11.5-14.5 Platelet Count 265 K/ul 140-440 Neutrophils 57.5 % 50-70 Lymphocytes 29.5 % 20-44 Monocytes 10.0 % High 2-9 Eosinophil 2.5 % 0-4 Basophil 0.5 % 0-2 Absolute Neutrophils 4.7 K/ul 2.05-7.63 Absolute Lymphocytes 2.4 K/ul 0.8-4.8 Absolute Monocytes 0.8 K/ul 0.1-1.0 Absolute Eosinophils 0.2 K/ul 0.1-0.5 Absolute Basophils 0.0 K/ul Low 0.1-0.3 Lipid Panel 02/01/2004 [facility] (Do not Use) Cholesterol 201 mg/dL High 50-199 [facility] [place] [address] [phone] Triglycerides 64 mg/dL 30-200 HDL 59 mg/dL 35-85 Chol/HDL Ratio 3.4 Ratio VLDL 13 mg/dL LDL (Calc) 129 mg/dL 20-129 CMP 02/01/2004 [facility] (Do not Use) Sodium 140 mmol/L 135-145 [facility] [employer] [place] [address] [phone] Potassium 4.0 mmol/L 3.4-5.3 Chloride 104 mmol/L 98-111 Carbon Dioxide 27 mmol/L 22-33 Glucose 94 mg/dL 70-105 BUN 9 mg/dL 6-26 Creatinine 0.8 mg/dL 0.5-1.5 BUN/CR 11 Ratio Low 12.0-20.0 Calcium 9.2 mg/dL 8.6-10.3 Total Protein 7.1 g/dL 6.2-8.3 Albumin 3.9 g/dL 3.5-5.0 Globulin 3.2 g/dL 2.7-4.3 A/G Ratio 1.2 Ratio 1.0-2.2 Total Bilirubin 0.7 mg/dL 0.1-1.3 Ast 21 U/L 8-42 Alt 16 U/L 3-42 Alkaline Phosphatase 70 U/L 24-108 Anion Gap 13 mmol/L 10-20 Laboratory test 02/01/2004 [facility] (Do not Use) TSH 2.49 uIU/ml 0.50 -6.00 finding [facility] [place] [address] [phone] 1 Updated reference range on new analyzer 2 Updated reference range on new analyzer 3 Concerning GFR Guidelines for Americans: Normal function or mild renal disease, if clinically at risk: >/=60 mL/min Moderately decreased: 30-59 Severely decreased: 15-29 Renal failure: <15 4 Concerning GFR Guidelines: Normal function or mild renal disease, if clinically at risk: >/=60 mL/min Moderately decreased: 30-59 Severely decreased: 15-29 Renal failure: <15 Glomerular Filtration Rate (GFR) is estimated based on the MDRD equation, which assumes a steady state for creatinine as recommended by the National Kidney Disease Education Program in conjunction with the National Institutes of Health and the National Kidney Foundation. Clinical conditions in which it may be necessary to measure GFR by using clearance methods include extremes of age and body size, severe malnutrition or obesity, diseases of skeletal muscle, paraplegia or quadriplegia, vegetarian diet, rapidly changing kidney function, and calculation of the dose of potentially toxic drugs that are excreted by the kidneys. 5 Updated Reference Range 6 Per NCEP ATP III Guidelines: Results lower than 40 mg/dL are suggestive of increased risk for coronary artery disease. Results > or=to 60 mg/dL are considered a negative risk factor. 7 Per NCEP ATP III Guidelines: Normal Population <130 Patients with medical conditions: CHD/DM Optimal: <100 Borderline high: 130-159 High: 160-189 Very high: >189 8 Per NCEP ATP III Guidelines: Results lower than 40 mg/dL are suggestive of increased risk for coronary artery disease. Results > or=to 60 mg/dL are considered a negative risk factor. 9 Per NCEP ATP III Guidelines: Normal Population <130 Patients with medical conditions: CHD/DM Optimal: <100 Borderline high: 130-159 High: 160-189 Very high: >189 10 Updated reference range on new analyzer 11 Updated reference range on new analyzer 12 Concerning GFR Guidelines for Americans: Normal function or mild renal disease, if clinically at risk: >/=60 mL/min Moderately decreased: 30-59 Severely decreased: 15-29 Renal failure: <15 13 Concerning GFR Guidelines: Normal function or mild renal disease, if clinically at risk: >/=60 mL/min Moderately decreased: 30-59 Severely decreased: 15-29 Renal failure: <15 Glomerular Filtration Rate (GFR) is estimated based on the MDRD equation, which assumes a steady state for creatinine as recommended by the National Kidney Disease Education Program in conjunction with the National Institutes of Health and the National Kidney Foundation. Clinical conditions in which it may be necessary to measure GFR by using clearance methods include extremes of age and body size, severe malnutrition or obesity, diseases of skeletal muscle, paraplegia or quadriplegia, vegetarian diet, rapidly changing kidney function, and calculation of the dose of potentially toxic drugs that are excreted by the kidneys. 14 Updated Reference Range 15 Per NCEP ATP III Guidelines: Results lower than 40 mg/dL are suggestive of increased risk for coronary artery disease. Results > or=to 60 mg/dL are considered a negative risk factor. 16 Per NCEP ATP III Guidelines: Normal Population <130 Patients with medical conditions: CHD/DM Optimal: <100 Borderline high: 130-159 High: 160-189 Very high: >189 17 Updated reference range on new analyzer 18 Updated reference range on new analyzer 19 Concerning GFR Guidelines for Americans: Normal function or mild renal disease, if clinically at risk: >/=60 mL/min Moderately decreased: 30-59 Severely decreased: 15-29 Renal failure: <15 20 Concerning GFR Guidelines: Normal function or mild renal disease, if clinically at risk: >/=60 mL/min Moderately decreased: 30-59 Severely decreased: 15-29 Renal failure: <15 Glomerular Filtration Rate (GFR) is estimated based on the MDRD equation, which assumes a steady state for creatinine as recommended by the National Kidney Disease Education Program in conjunction with the National Institutes of Health and the National Kidney Foundation. Clinical conditions in which it may be necessary to measure GFR by using clearance methods include extremes of age and body size, severe malnutrition or obesity, diseases of skeletal muscle, paraplegia or quadriplegia, vegetarian diet, rapidly changing kidney function, and calculation of the dose of potentially toxic drugs that are excreted by the kidneys. 21 Updated reference range on new analyzer 22 Per NCEP ATP III Guidelines: Results lower than 40 mg/dL are suggestive of increased risk for coronary artery disease. Results > or=to 60 mg/dL are considered a negative risk factor. 23 Per NCEP ATP III Guidelines: Normal Population <130 Patients with medical conditions: CHD/DM Optimal: <100 Borderline high: 130-159 High: 160-189 Very high: >189 24 Updated reference range on new analyzer 25 Updated reference range on new analyzer 26 Concerning GFR Guidelines for Americans: Normal function or mild renal disease, if clinically at risk: >/=60 mL/min Moderately decreased: 30-59 Severely decreased: 15-29 Renal failure: <15 27 Concerning GFR Guidelines: Normal function or mild renal disease, if clinically at risk: >/=60 mL/min Moderately decreased: 30-59 Severely decreased: 15-29 Renal failure: <15 Glomerular Filtration Rate (GFR) is estimated based on the MDRD equation, which assumes a steady state for creatinine as recommended by the National Kidney Disease Education Program in conjunction with the National Institutes of Health and the National Kidney Foundation. Clinical conditions in which it may be necessary to measure GFR by using clearance methods include extremes of age and body size, severe malnutrition or obesity, diseases of skeletal muscle, paraplegia or quadriplegia, vegetarian diet, rapidly changing kidney function, and calculation of the dose of potentially toxic drugs that are excreted by the kidneys. 28 Updated reference range on new analyzer 29 C50.912 30 Note: Persistent reduction for 3 months or more in an eGFR <60 mL/min/1.73 m2 defines CKD. Patients with eGFR values >/=60 mL/min/1.73 m2 may also have CKD if evidence of persistent proteinuria is present. The original MDRD equation for estimated GFR is not valid for patients less than 18 years of age. Additional information may be found at www.kdoqi.org. 31 Forgotten [place]/sones methodology Values obtained with different assay methods or kits cannot be used interchangeably. Results cannot be interpreted as absolute evidence of the presence or absence of malignant disease. Performed at: - [facility] [id number] Specimen Processor: Eden Schmitt MD, Phone: [phone] 32 Concerning GFR Guidelines for Americans: Normal function or mild renal disease, if clinically at risk: >/=60 mL/min Moderately decreased: 30-59 Severely decreased: 15-29 Renal failure: <15 33 Concerning GFR Guidelines: Normal function or mild renal disease, if clinically at risk: >/=60 mL/min Moderately decreased: 30-59 Severely decreased: 15-29 Renal failure: <15 Glomerular Filtration Rate (GFR) is estimated based on the MDRD equation, which assumes a steady state for creatinine as recommended by the National Kidney Disease Education Program in conjunction with the National Institutes of Health and the National Kidney Foundation. Clinical conditions in which it may be necessary to measure GFR by using clearance methods include extremes of age and body size, severe malnutrition or obesity, diseases of skeletal muscle, paraplegia or quadriplegia, vegetarian diet, rapidly changing kidney function, and calculation of the dose of potentially toxic drugs that are excreted by the kidneys. 34 Per NCEP ATP III Guidelines: Results lower than 40 mg/dL are suggestive of increased risk for coronary artery disease. Results > or=to 60 mg/dL are considered a negative risk factor. 35 Per NCEP ATP III Guidelines: Normal Population <130 Patients with medical conditions: CHD/DM Optimal: <100 Borderline high: 130-159 High: 160-189 Very high: >189 36 Per NCEP ATP III Guidelines: Results lower than 40 mg/dL are suggestive of increased risk for coronary artery disease. Results > or=to 60 mg/dL are considered a negative risk factor. 37 Per NCEP ATP III Guidelines: Normal Population <130 Patients with medical conditions: CHD/DM Optimal: <100 Borderline high: 130-159 High: 160-189 Very high: >189 38 Concerning GFR Guidelines for Americans: Normal function or mild renal disease, if clinically at risk: >/=60 mL/min Moderately decreased: 30-59 Severely decreased: 15-29 Renal failure: <15 39 Concerning GFR Guidelines: Normal function or mild renal disease, if clinically at risk: >/=60 mL/min Moderately decreased: 30-59 Severely decreased: 15-29 Renal failure: <15 Glomerular Filtration Rate (GFR) is estimated based on the MDRD equation, which assumes a steady state for creatinine as recommended by the National Kidney Disease Education Program in conjunction with the National Institutes of Health and the National Kidney Foundation. Clinical conditions in which it may be necessary to measure GFR by using clearance methods include extremes of age and body size, severe malnutrition or obesity, diseases of skeletal muscle, paraplegia or quadriplegia, vegetarian diet, rapidly changing kidney function, and calculation of the dose of potentially toxic drugs that are excreted by the kidneys. 40 Per NCEP ATP III Guidelines: Results lower than 40 mg/dL are suggestive of increased risk for coronary artery disease. Results > or=to 60 mg/dL are considered a negative risk factor. 41 Per NCEP ATP III Guidelines: Normal Population <130 Patients with medical conditions: CHD/DM Optimal: <100 Borderline high: 130-159 High: 160-189 Very high: >189 42 Concerning GFR Guidelines for Americans: Normal function or mild renal disease, if clinically at risk: >/=60 mL/min Moderately decreased: 30-59 Severely decreased: 15-29 Renal failure: <15 43 Concerning GFR Guidelines: Normal function or mild renal disease, if clinically at risk: >/=60 mL/min Moderately decreased: 30-59 Severely decreased: 15-29 Renal failure: <15 Glomerular Filtration Rate (GFR) is estimated based on the MDRD equation, which assumes a steady state for creatinine as recommended by the National Kidney Disease Education Program in conjunction with the National Institutes of Health and the National Kidney Foundation. Clinical conditions in which it may be necessary to measure GFR by using clearance methods include extremes of age and body size, severe malnutrition or obesity, diseases of skeletal muscle, paraplegia or quadriplegia, vegetarian diet, rapidly changing kidney function, and calculation of the dose of potentially toxic drugs that are excreted by the kidneys. 44 Per NCEP ATP III Guidelines: Results lower than 40 mg/dL are suggestive of increased risk for coronary artery disease. Results > or=to 60 mg/dL are considered a negative risk factor. 45 Per NCEP ATP III Guidelines: Normal Population <130 Patients with medical conditions: CHD/DM Optimal: <100 Borderline high: 130-159 High: 160-189 Very high: >189 46 Concerning GFR Guidelines for Americans: Normal function or mild renal disease, if clinically at risk: >/=60 mL/min Moderately decreased: 30-59 Severely decreased: 15-29 Renal failure: <15 47 Concerning GFR Guidelines: Normal function or mild renal disease, if clinically at risk: >/=60 mL/min Moderately decreased: 30-59 Severely decreased: 15-29 Renal failure: <15 Glomerular Filtration Rate (GFR) is estimated based on the MDRD equation, which assumes a steady state for creatinine as recommended by the National Kidney Disease Education Program in conjunction with the National Institutes of Health and the National Kidney Foundation. Clinical conditions in which it may be necessary to measure GFR by using clearance methods include extremes of age and body size, severe malnutrition or obesity, diseases of skeletal muscle, paraplegia or quadriplegia, vegetarian diet, rapidly changing kidney function, and calculation of the dose of potentially toxic drugs that are excreted by the kidneys. 48 Concerning GFR Guidelines for Americans: Normal function or mild renal disease, if clinically at risk: >/=60 mL/min Moderately decreased: 30-59 Severely decreased: 15-29 Renal failure: <15 49 Concerning GFR Guidelines: Normal function or mild renal disease, if clinically at risk: >/=60 mL/min Moderately decreased: 30-59 Severely decreased: 15-29 Renal failure: <15 Glomerular Filtration Rate (GFR) is estimated based on the MDRD equation, which assumes a steady state for creatinine as recommended by the National Kidney Disease Education Program in conjunction with the National Institutes of Health and the National Kidney Foundation. Clinical conditions in which it may be necessary to measure GFR by using clearance methods include extremes of age and body size, severe malnutrition or obesity, diseases of skeletal muscle, paraplegia or quadriplegia, vegetarian diet, rapidly changing kidney function, and calculation of the dose of potentially toxic drugs that are excreted by the kidneys. 50 Per NCEP ATP III Guidelines: Results lower than 40 mg/dL are suggestive of increased risk for coronary artery disease. Results > or=to 60 mg/dL are considered a negative risk factor. 51 Per NCEP ATP III Guidelines: Normal Population <130 Patients with medical conditions: CHD/DM Optimal: <100 Borderline high: 130-159 High: 160-189 Very high: >189 52 Concerning GFR Guidelines for Americans: Normal function or mild renal disease, if clinically at risk: >/=60 mL/min Moderately decreased: 30-59 Severely decreased: 15-29 Renal failure: <15 53 Concerning GFR Guidelines: Normal function or mild renal disease, if clinically at risk: >/=60 mL/min Moderately decreased: 30-59 Severely decreased: 15-29 Renal failure: <15 Glomerular Filtration Rate (GFR) is estimated based on the MDRD equation, which assumes a steady state for creatinine as recommended by the National Kidney Disease Education Program in conjunction with the National Institutes of Health and the National Kidney Foundation. Clinical conditions in which it may be necessary to measure GFR by using clearance methods include extremes of age and body size, severe malnutrition or obesity, diseases of skeletal muscle, paraplegia or quadriplegia, vegetarian diet, rapidly changing kidney function, and calculation of the dose of potentially toxic drugs that are excreted by the kidneys. 54 Per NCEP ATP III Guidelines: Results lower than 40 mg/dL are suggestive of increased risk for coronary artery disease. Results > or=to 60 mg/dL are considered a negative risk factor. 55 Per NCEP ATP III Guidelines: Normal Population <130 Patients with medical conditions: CHD/DM Optimal: <100 Borderline high: 130-159 High: 160-189 Very high: >189 56 Per NCEP ATP III Guidelines: Results lower than 40 mg/dL are suggestive of increased risk for coronary artery disease. Results > or=to 60 mg/dL are considered a negative risk factor. 57 Per NCEP ATP III Guidelines: Normal Population <130 Patients with medical conditions: CHD/DM Optimal: <100 Borderline high: 130-159 High: 160-189 Very high: >189 58 Concerning GFR Guidelines for Americans: Normal function or mild renal disease, if clinically at risk: >/=60 mL/min Moderately decreased: 30-59 Severely decreased: 15-29 Renal failure: <15 59 Concerning GFR Guidelines: Normal function or mild renal disease, if clinically at risk: >/=60 mL/min Moderately decreased: 30-59 Severely decreased: 15-29 Renal failure: <15 Glomerular Filtration Rate (GFR) is estimated based on the MDRD equation, which assumes a steady state for creatinine as recommended by the National Kidney Disease Education Program in conjunction with the National Institutes of Health and the National Kidney Foundation. Clinical conditions in which it may be necessary to measure GFR by using clearance methods include extremes of age and body size, severe malnutrition or obesity, diseases of skeletal muscle, paraplegia or quadriplegia, vegetarian diet, rapidly changing kidney function, and calculation of the dose of potentially toxic drugs that are excreted by the kidneys. 60 Sent directly to [facility]. 61 Unless otherwise specified, testing performed [place] [address] 62 A REVIEW OF THE LITERATURE SUGGESTS THE FOLLOWING RANGES FOR THE CLASSIFICATION OF 25-OH VITAMIN D STATUS: VITAMIN D STATUS 25-OH VITAMIN D DEFICIENCY <20 NG/ML INSUFFICIENCY 20-30 NG/ML SUFFICIENCY 31 - 100 NG/ML TOXICITY > 100 NG/ML A PEDIATRIC REFERENCE RANGE HAS NOT BEEN ESTABLISHED USING THIS METHOD. Unless otherwise specified, testing [place] [address] 63 NOTE: [facility] METHOD AND REFERENCE RANGE EFFECTIVE 13 64 NORMAL KIDNEY FUNCTION OR MILD DISEASE - GFR >OR=60 CHRONIC KIDNEY DISEASE - GFR 15 - 59 RENAL FAILURE - GFR <15 Est. GFR calculation based on the MDRD study equation, which assumes a steady state for creatinine. Est. GFR should not be used for medication dosing. Unless otherwise specified, testing performed [place] [address] 65 PER NCEP ATP III GUIDELINES: RESULTS LOWER THAN 40 MG/DL ARE SUGGESTIVE OF INCREASED RISK FOR CORONARY ARTERY DISEASE. RESULTS > OR=TO 60 MG/DL ARE CONSIDERED A NEGATIVE RISK FACTOR. 66 INTERPRETATION OF CHOL-HDL RATIO CHD RISK FEMALE MALE VERY HIGH >8.3 >14.3 HIGH 5.6- 8.3 6.7- 14.3 AVERAGE 3.7- 5.6 4.0- 6.7 BELOW AVERAGE 2.5- 3.7 2.7- 4.0 PROTECTED <2.5 <2.7 67 PER NCEP ATP III GUIDELINES: OPTIMAL < 100 NEAR OPTIMAL 100 - 129 BORDERLINE HIGH 130 - 159 HIGH 160 - 189 VERY HIGH > 189 Unless otherwise specified, testing performed by [facility] [address] [place] [id number] Concerning GFR Guidelines: Normal function or mild renal disease, if clinically at risk: >/=60 mL/min Moderately decreased: 30-59 Severely decreased: 15-29 Renal failure: <15 Glomerular Filtration Rate (GFR) is estimated based on the MDRD equation, which assumes a steady state for creatinine as recommended by the National Kidney Disease Education Program in conjunction with the National Institutes of Health and the National Kidney Foundation. Clinical conditions in which it may be necessary to measure GFR by using clearance methods include extremes of age and body size, severe malnutrition or obesity, diseases of skeletal muscle, paraplegia or quadriplegia, vegetarian diet, rapidly changing kidney function, and calculation of the dose of potentially toxic drugs that are excreted by the kidneys. 69 Concerning GFR Guidelines for Americans: Normal function or mild renal disease, if clinically at risk: >/=60 mL/min Moderately decreased: 30-59 Severely decreased: 15-29 Renal failure: <15 70 Per NCEP ATP III Guidelines: Results lower than 40 mg/dL are suggestive of increased risk for coronary artery disease. Results > or=to 60 mg/dL are considered a negative risk factor. 71 Per NCEP ATP III Guidelines: Optimal: <100 Near optimal: 100-129 Borderline high: 130-159 High: 160-189 Very high: >189 72 Per NCEP ATP III Guidelines: Results lower than 40 mg/dL are suggestive of increased risk for coronary artery disease. Results > or=to 60 mg/dL are considered a negative risk factor. 73 Per NCEP ATP III Guidelines: Optimal: <100 Near optimal: 100-129 Borderline high: 130-159 High: 160-189 Very high: >189 74 Concerning GFR Guidelines: Normal function or mild renal disease, if clinically at risk: >/=60 mL/min Moderately decreased: 30-59 Severely decreased: 15-29 Renal failure: <15 Glomerular Filtration Rate (GFR) is estimated based on the MDRD equation, which assumes a steady state for creatinine as recommended by the National Kidney Disease Education Program in conjunction with the National Institutes of Health and the National Kidney Foundation. Clinical conditions in which it may be necessary to measure GFR by using clearance methods include extremes of age and body size, severe malnutrition or obesity, diseases of skeletal muscle, paraplegia or quadriplegia, vegetarian diet, rapidly changing kidney function, and calculation of the dose of potentially toxic drugs that are excreted by the kidneys. 75 Concerning GFR Guidelines for Americans: Normal function or mild renal disease, if clinically at risk: >/=60 mL/min Moderately decreased: 30-59 Severely decreased: 15-29 Renal failure: <15 76 Concerning GFR Guidelines: Normal function or mild renal disease, if clinically at risk: >/=60 mL/min Moderately decreased: 30-59 Severely decreased: 15-29 Renal failure: <15 Glomerular Filtration Rate (GFR) is estimated based on the MDRD equation, which assumes a steady state for creatinine as recommended by the National Kidney Disease Education Program in conjunction with the National Institutes of Health and the National Kidney Foundation. Clinical conditions in which it may be necessary to measure GFR by using clearance methods include extremes of age and body size, severe malnutrition or obesity, diseases of skeletal muscle, paraplegia or quadriplegia, vegetarian diet, rapidly changing kidney function, and calculation of the dose of potentially toxic drugs that are excreted by the kidneys. 77 Concerning GFR Guidelines for Americans: Normal function or mild renal disease, if clinically at risk: >/=60 mL/min Moderately decreased: 30-59 Severely decreased: 15-29 Renal failure: <15 78 Per NCEP ATP III Guidelines: Results lower than 40 mg/dL are suggestive of increased risk for coronary artery disease. Results > or=to 60 mg/dL are considered a negative risk factor. 79 Per NCEP ATP III Guidelines: Optimal: <100 Near optimal: 100-129 Borderline high: 130-159 High: 160-189 Very high: >189 80 Concerning GFR Guidelines: Normal function or mild renal disease, if clinically at risk: >/=60 mL/min Moderately decreased: 30-59 Severely decreased: 15-29 Renal failure: <15 Glomerular Filtration Rate (GFR) is estimated based on the MDRD equation, which assumes a steady state for creatinine as recommended by the National Kidney Disease Education Program in conjunction with the National Institutes of Health and the National Kidney Foundation. Clinical conditions in which it may be necessary to measure GFR by using clearance methods include extremes of age and body size, severe malnutrition or obesity, diseases of skeletal muscle, paraplegia or quadriplegia, vegetarian diet, rapidly changing kidney function, and calculation of the dose of potentially toxic drugs that are excreted by the kidneys. 81 Concerning GFR Guidelines for Americans: Normal function or mild renal disease, if clinically at risk: >/=60 mL/min Moderately decreased: 30-59 Severely decreased: 15-29 Renal failure: <15 82 FASTING 83 PER NCEP ATP III GUIDELINES: RESULTS LOWER THAN 40 MG/DL ARE SUGGESTIVE OF INCREASED RISK FOR CORONARY ARTERY DISEASE. RESULTS > OR=TO 60 MG/DL ARE CONSIDERED A NEGATIVE RISK FACTOR. 84 INTERPRETATION OF CHOL-HDL RATIO CHD RISK FEMALE MALE VERY HIGH >8.3 >14.3 HIGH 5.6 - 8.3 6.7 - 14.3 AVERAGE 3.7 - 5.6 4.0 - 6.7 BELOW AVERAGE 2.5 - 3.7 2.7 - 4.0 PROTECTED <2.5 <2.7 85 PER NCEP ATP III GUIDELINES: OPTIMAL: <100 NEAR OPTIMAL: 100 - 129 BORDERLINE HIGH: 130 - 159 HIGH: 160 - 189 VERY HIGH: >189 86 Concerning GFR GUIDELINES: Normal Function or Mild Renal Disease, if clinically at risk: >/=60mL/min Moderately decreased: 30-59 Severely decreased: 15-29 Renal Failure: <15 Glomerular Filtration Rate (GFR) is estimated based on the MDRD equation, which assumes a steady state for creatinine as recommended by the National Kidney Disease Education Program in conjunction with the National Institutes of Health and the National Kidney Foundation. Clinical conditions in which it may be necessary to measure GFR by using clearance methods include extremes of age and body size, severe malnutrition or obesity, diseases of skeletal muscle, paraplegia or quadriplegia, vegetarian diet, rapidly changing kidney function, and calculation of the dose of potentially toxic drugs that are excreted by the kidneys. 87 Concerning GFR GUIDELINES: Normal Function or Mild Renal Disease, if clinically at risk: >/=60mL/min Moderately decreased: 30-59 Severely decreased: 15-29 Renal Failure: <15 88 Concerning GFR GUIDELINES: Normal Function or Mild Renal Disease, if clinically at risk: >/=60mL/min Moderately decreased: 30-59 Severely decreased: 15-29 Renal Failure: <15 Glomerular Filtration Rate (GFR) is estimated based on the MDRD equation, which assumes a steady state for creatinine as recommended by the National Kidney Disease Education Program in conjunction with the National Institutes of Health and the National Kidney Foundation. Clinical conditions in which it may be necessary to measure GFR by using clearance methods include extremes of age and body size, severe malnutrition or obesity, diseases of skeletal muscle, paraplegia or quadriplegia, vegetarian diet, rapidly changing kidney function, and calculation of the dose of potentially toxic drugs that are excreted by the kidneys. 89 Concerning GFR GUIDELINES: Normal Function or Mild Renal Disease, if clinically at risk: >/=60mL/min Moderately decreased: 30-59 Severely decreased: 15-29 Renal Failure: <15 90 PER NCEP ATP III GUIDELINES: RESULTS LOWER THAN 40 MG/DL ARE SUGGESTIVE OF INCREASED RISK FOR CORONARY ARTERY DISEASE. RESULTS > OR=TO 60 MG/DL ARE CONSIDERED A NEGATIVE RISK FACTOR. 91 INTERPRETATION OF CHOL-HDL RATIO CHD RISK FEMALE MALE VERY HIGH >8.3 >14.3 HIGH 5.6 - 8.3 6.7 - 14.3 AVERAGE 3.7 - 5.6 4.0 - 6.7 BELOW AVERAGE 2.5 - 3.7 2.7 - 4.0 PROTECTED <2.5 <2.7 92 PER NCEP ATP III GUIDELINES: OPTIMAL: <100 NEAR OPTIMAL: 100 - 129 BORDERLINE HIGH: 130 - 159 HIGH: 160 - 189 VERY HIGH: >189 Procedures Date Code Description Status 06/29/2018 [id number] Mammogram Completed 04/19/2018 16208 Electrocardiogram Complete Completed 05/28/2017 [id number] Mammogram Completed 10/06/2016 86298 Electrocardiogram Complete Completed 05/27/2016 [id number] Mammogram Completed 05/25/2015 [id number] Mammogram Completed 10/26/2014 [id number] Colonoscopy Completed 10/02/2014 34400 Electrocardiogram Complete Completed 10/04/2013 47258 Visual Screening Test Completed 10/04/2013 44605 Electrocardiogram Complete Completed 03/30/2012 17349 Electrocardiogram Complete Completed 07/25/2010 50357 Electrocardiogram Complete Completed 07/24/2009 90697 Remove Impacted Cerumen Requiring Instrumentation Completed 08/28/2006 64611 Shave Skin Lesion .6-1CM Trunk/Arm/Leg Completed Encounters Type Date Location Provider Dx Diagnosis Office Visit 04/19/2018 Sondra Mancuso, Z00.00 Encntr for general 9:00a RN,GRINDER SET UP OPERATOR,MS adult medical exam w/o abnormal findings I10 Essential (primary) hypertension G57.12 Meralgia paresthetica, LEFT lower limb E78.2 Mixed hyperlipidemia Z68.23 Body mass index (BMI) 23.0-23.9, adult Office Visit 10/20/2017 9:00a Sondra Mancuso, Z00.00 Encntr for RN,GRINDER SET UP OPERATOR,MS general adult medical exam w/o abnormal findings I10 Essential (primary) hypertension E78.2 Mixed hyperlipidemia G57.12 Meralgia paresthetica, LEFT lower limb Office Visit 04/06/2017 9:30a Sondra Mancuso, E78.2 Mixed hyperlipidemia RN,GRINDER SET UP OPERATOR,MS I10 Essential (primary) hypertension C50.912 Malignant neoplasm of unspecified site of LEFT female breast D70.9 Neutropenia, unspecified 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 G57.12 Meralgia paresthetica, LEFT lower limb Office Visit 10/06/2016 9:00a Sondra Mancuso, E78.2 Mixed hyperlipidemia RN,GRINDER SET UP OPERATOR,MS I10 Essential (primary) hypertension C50.912 Malignant neoplasm of unspecified site of LEFT female breast Z00.00 Encntr for general adult medical exam w/o abnormal findings Office Visit 04/03/2016 10:30a Sondra Mancuso, I10 Essential ( primary) RN,GRINDER SET UP OPERATOR,MS hypertension E78.2 Mixed hyperlipidemia G57.12 Meralgia paresthetica, LEFT lower limb Office Visit 10/02/2015 1:30p Sondra Mancuso, E78.2 Mixed hyperlipidemia RN,GRINDER SET UP OPERATOR,MS I10 Essential (primary) hypertension Z23 Encounter for immunization R20.8 Other disturbances of skin sensation Office Visit 04/02/2015 9:00a Sondra Mancuso, 272.2 Hyperlipidemia Mixed RN,GRINDER SET UP OPERATOR,MS 401.1 Hypertension Benign 355.1 Meralgia Paresthetica Office Visit 10/02/2014 9:00a Broderick Colmenares Sondra, 401.1 Hypertension Benign RN,GRINDER SET UP OPERATOR,MS 272.2 Hyperlipidemia Mixed V70.0 Exam (Adult) General Medical Routine AT Health Care Facility 355.1 Meralgia Paresthetica Office Visit 03/30/2014 9:30a Broderick Hardy Seligman, Sondra, 401.1 Hypertension Benign RN,GRINDER SET UP OPERATOR,MS 272.2 Hyperlipidemia Mixed 733.00 Osteoporosis Unspec V73.89 Screening Examination Viral Diseases Other Spec Office Visit 10/04/2013 9:00a Broderick Colmenares Sondra, 272.2 Hyperlipidemia Mixed RN,GRINDER SET UP OPERATOR,MS 401.1 Hypertension Benign V70.0 Exam (Adult) General Medical Routine AT Health Care Facility V07.2 Prophylactic Immunotherapy 355.1 Meralgia Paresthetica V03.82 Streptococcus Pneumoniae Vaccination Spec Other Office Visit 04/04/2013 9:00a Broderick Hardy Art Sondra, 272.2 Hyperlipidemia Mixed RN,GRINDER SET UP OPERATOR,MS 401.1 Hypertension Benign 733.00 Osteoporosis Unspec 388.30 Tinnitus Unspecified 389.9 Hearing Loss Unspec 355.1 Meralgia Paresthetica Office Visit 10/04/2012 9:00a Broderick Hardy Art Sondra, 401.1 Hypertension Benign RN,GRINDER SET UP OPERATOR,MS 272.2 Hyperlipidemia Mixed 782.0 Skin Sensation Disturbance Office Visit 03/30/2012 9:00a [facility] Cordova Sondra, 401.1 Hypertension Benign RN,GRINDER SET UP OPERATOR,MS 272.2 Hyperlipidemia Mixed Office Visit 09/26/2011 8:30a [facility] Cordova Sondra, 401.1 Hypertension Benign RN,GRINDER SET UP OPERATOR,MS 272.2 Hyperlipidemia Mixed 782.0 Skin Sensation Disturbance V58.69 Medications Fpc (Current) Use Encounter Office Visit 03/27/2011 9:30a [facility] Cordova Sondra, 272.2 Hyperlipidemia Mixed RN,GRINDER SET UP OPERATOR,MS 401.1 Hypertension Benign Office Visit 12/24/2010 9:00a Broderick Colmenares Sondra, 401.1 Hypertension Benign RN,GRINDER SET UP OPERATOR,MS Office Visit 11/19/2010 9:30a Broderick Colmenares Sondra, 401.1 Hypertension Benign RN,GRINDER SET UP OPERATOR,MS Office Visit 10/29/2010 9:00a BroderickSondra Calderon, 401.1 Hypertension Benign RN,GRINDER SET UP OPERATOR,MS 272.2 Hyperlipidemia Mixed V05.8 Single Disease Spec Other Vaccination & Inoculation V07.2 Prophylactic Immunotherapy Office Visit 07/25/2010 9:00a Sondra Mancuso, 401.1 Hypertension Benign RN,GRINDER SET UP OPERATOR,MS 733.00 Osteoporosis Unspec V17.49 Family HX Of Other Cardiovascular Diseases V78.9 Screening Blood & Blood Forming Organs Disorders Unspec Office Visit 07/09/2010 11:00a Broderick ColmenaresSondra, RN,GRINDER SET UP OPERATOR,MS 695.3 Rosacea 796.2 Blood Pressure Reading Elevated W/O Hypertension V04.81 Need For Prophylactic Vaccination & Inoculation/Influenza Office Visit 07/24/2009 8:00a Broderick ColmenaresSondra, RN,GRINDER SET UP OPERATOR,MS 695.3 Rosacea 380.4 Impacted Cerumen 796.2 Blood Pressure Reading Elevated W/O Hypertension 477.0 Rhinitis Allergic Due To Pollen Office Visit 09/19/2008 2:00p Sondra Mancuso, 847.2 Sprains & Strains RN,GRINDER SET UP OPERATOR,MS Lumbar Office Visit 06/06/2008 3:30p Sondra Mancuso, 695.3 Rosacea RN,GRINDER SET UP OPERATOR,MS Office Visit 05/31/2007 3:30p Sondra Mancuso, 477.0 Rhinitis Allergic RN,GRINDER SET UP OPERATOR,MS Due To Pollen 695.3 Rosacea V07.2 Prophylactic Immunotherapy V06.1 Vduojesnsw-Znnqkwr-Lywlvwlh Combined (DTaP) Office Visit 08/24/2006 1:00p Sondra Mancuso, 078.10 Viral Warts RN,GRINDER SET UP OPERATOR,MS Unspec Office Visit 03/10/2006 3:30p Sondra Mancuso, 477.0 Rhinitis Allergic RN,GRINDER SET UP OPERATOR,MS Due To Pollen 695.3 Rosacea Office Visit 02/04/2005 3:30p Sondra Mancuso, 477.0 Rhinitis Allergic RN,GRINDER SET UP OPERATOR,MS Due To Pollen 695.3 Rosacea V76.41 Screening Malignant Neoplasm Rectum Office Visit 02/01/2004 4:00p Sondra Mancuso, 477.0 Rhinitis Allergic RN,GRINDER SET UP OPERATOR,MS Due To Pollen 695.3 Rosacea V17.3 History Family Ischemic Heart Disease V78.9 Screening Blood & Blood Forming Organs Disorders Unspec Office Visit 01/30/2003 3:30p [facility] Sondra Cordova, 477.0 Rhinitis Allergic RN,GRINDER SET UP OPERATOR,MS Due To Pollen 695.3 Rosacea Office Visit 12/10/2001 3:00p [facility] Sondra Cordova, 110.4 Dermatophytosis Foot RN,GRINDER SET UP OPERATOR,MS 477.0 Rhinitis Allergic Due To Pollen 695.3 Rosacea Plan of Treatment Future Appointment(s):04/22/2019 9:00 am - Sondra Cordova, RN,GRINDER SET UP OPERATOR,[facility] - Sondra Cordova RN,GRINDER SET UP OPERATOR,MSE78.2 Mixed hyperlipidemiaComments:Check labs, adjust meds as needed, healthy diet and exercise encouraged. FU 6mFollow up:Followup:.I10 Essential (primary) hypertensionComments:well controlled, continue meds, check labs. continue to focus on healthy dietFollow up:Followup:.AllFollow up:Followup:.
[2018-11-17 16:44] VITALS: BP 147/87
--- NOTE | 2018-11-17 16:46 | UC ---
Eye Complaint HPI - HPI Summary HPI Summary: 68 yo female presents with b/l eye redness and drainage. 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 Yesterday pt developed right eye redness and yellow drainage. Today has spread into the left eye as well. She denies fever, recent illness, cold-like symptoms, injury, or FB within the eye. No vision changes. She wears glasses at times, but never contacts. - History of Current Complaint Chief Complaint: UCEye Stated Complaint: EYE IRRITATION Time Seen by Provider: 11/17/18 16:45 Hx Obtained From: Patient Hx Last Menstrual Period: shipping support Onset/Duration: Sudden Onset Timing: Constant Severity Currently: None Pain Intensity: 0 - Allergies/Home Medications Allergies/Adverse Reactions: Allergies Allergy/AdvReac Type Severity Reaction Status Date / Time No Known Allergies Allergy Verified 11/17/18 16:45 PMH/Surg Hx/FS Hx/Imm Hx - Additional Past Medical History Additional PMH: BRCA Endocrine History: Dyslipidemia Cardiovascular History: Hypertension - Surgical History Surgical History: Yes Surgery Procedure, Year, and Place: LEFT Breast partial mastectomy - Family History Known Family History: Positive: Cardiac Disease - CHF, Hypertension, Other - sister has MS, other sister is prehypertensive Negative: Diabetes - Social History Lives: With Family Alcohol Use: Rare Substance Use Type: None Smoking Status (MU): Never Smoked Tobacco Review of Systems All Other Systems Reviewed And Are Negative: Yes Constitutional: Positive: Negative Skin: Positive: Negative Eyes: Positive: Drainage, Eye Redness ENT: Positive: Negative Respiratory: Positive: Negative Cardiovascular: Positive: Negative Gastrointestinal: Positive: Negative Neurovascular: Positive: Negative Neurological: Positive: Negative Psychological: Positive: Negative Physical Exam - Summary Physical Exam Summary: GENERAL: WDWN. No pain distress. SKIN: No rashes, sores, lesions, or open wounds. HEENT: Head: AT/NC Eyes: EOM intact. PERRLA. B/L EYES: Moderate scleral injection. Conjunctiva with moderate erythema and inflammation. Mild thick yellow discharge. Nose: NTTP maxillary and frontal sinus. NECK: Supple. Nontender. No lymphadenopathy. CHEST: No accessory muscle use. Breathing comfortably and in no distress. CV: Pulses intact. Cap refill <2seconds NEURO: Alert. PSYCH: Age appropriate behavior. Triage Information Reviewed: Yes Vital Signs: Initial Vital Signs Temp 98.4 F 11/17/18 16:41 Pulse 93 11/17/18 16:41 Resp 16 11/17/18 16:41 BP 147/87 11/17/18 16:41 Pulse Ox 98 11/17/18 16:41 Vital Signs Reviewed: Yes Eye Complaint Course/Dx - Course Course Of Treatment: B/L conjunctivitis - Differential Dx/Diagnosis Provider Diagnosis: Conjunctivitis Discharge - Sign-Out/Discharge Documenting (check all that apply): Patient Departure All imaging exams completed and their final reports reviewed: No Studies - Discharge Plan Condition: Stable Disposition: HOME Prescriptions: Polymyx/Trimethoprim OPTH* [Polytrim OPHTH*] 1 drop BOTH EYES QID #1 btl Patient Education Materials: Conjunctivitis (ED) Referrals: Catia Cordova NP [Primary Care Provider] - Additional Instructions: If you develop a fever, shortness of breath, chest pain, new or worsening symptoms - please call your PCP or go to the ED. Your blood pressure was high at todays visit. Please see your primary provider within 4 weeks for recheck and re-evaluation. - Billing Disposition and Condition Condition: STABLE Disposition: Home - Attestation Statements Provider Attestation: Per institutional requirements, I have reviewed the chart, however, I was not consulted specifically or made aware of this patient by the midlevel provider. I did not personally evaluate, interact with , or disposition this patient.
== END 2018-11-17 17:01 | disposition home or self-care (01) ==
LOC: UCEAST 16:36
DX: H10.33 Unspecified acute conjunctivitis, bilateral (principal)
CPT/HCPCS: 99212; G0463

== ENCOUNTER 2019-06-13 10:22 | Emergency (ER) | payer MEDICARE ==
--- OUTSIDE RECORDS SUMMARY | 2019-06-13 10:27 | XMS REPORT | Continuity of Care Document ---
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 Payers Date Identification Numbers Payment Provider Subscriber Effective: 2013 Policy Number: [id number] [employer] Number: [id number] [address]: [id number] [place] [address] Problems Active Problems Provider Date Benign essential hypertension Onset: 08/02/2010 Mixed hyperlipidemia Sondra Cordova RN,LJ,MS Onset: 04/02/2011 Sondra Rodriguez RN,PROFESSIONAL FIGHTER,MS Onset: 04/02/2011 Family History Date Family Member(s) Observation Comments General Cancer, Breast General Heart Disease General Hypertension Father Heart Disease Father Hypertension First Brother Seizures First Sister Hypertension First Sister Diabetes, Adult Second Sister Multiple Sclerosis Paternal Uncles Heart Disease Paternal Aunts Cancer, Breast Social History Type Date Description Comments Sex Unknown Marital Status Occupation Downsized from [employer], currently unemployed Tobacco Use Start: Unknown End: denies cigarette use Unknown ETOH Use Rarely consumes alcohol Exercise Type/Frequency exercises sporadically Seat Belt/Car Seat always Seat Belt/Car Seat always uses seat belt Allergies, Adverse Reactions, Alerts Description No Known Drug Allergies Medications Active Medications SIG Qnty Indications Ordering Provider Date Lisinopril-Hydrochlo Take One Tablet 90tabs Sondra Cordova, 10/02/2014 rothiazide By Mouth Every RN,LJ,MS 10-12.5mg Day Tablets Gabapentin Take One Capsule 360caps Art Sondra, 11/30/2012 100mg By Mouth Every RN,PROFESSIONAL FIGHTER,MS Capsules Morning Take Three Capsules By Mouth AT Bedtime Simvastatin take one tablet 90tabs Sondra Cordova, 08/02/2010 20mg by mouth once RN,PROFESSIONAL FIGHTER,MS Tablets daily Vitamin B-12 2 by mouth every Unknown 1000mcg day Tablets Lysine HCL 3 by mouth every Unknown 500mg day Tablets Calcium Antacid 2by mouth twice a Unknown 500mg day as needed Chewtabs Sodium Unknown Sulfacetamide/Sulfur Cleanser Liquid Anastrozole 1 by mouth every Unknown 1mg day Tablets Vitamin D-3 qd Unknown 2000Iu Tablets History Medications Shingrix given one dose 1units Art Sondra, 04/19/2018 - 50mcg Suspension Rec now, give second RNLJ,MS 05/02/2019 dose in 2-6months after first dose. Sodium Sondra Cordova, 04/04/2013 - Sulfacetamide/Sulfur RN,PROFESSIONAL FIGHTER,MS 04/03/2013 Cleanser 10-5% Emulsion [facility] cmp, lipids, TSH Art Sondra, 10/04/2012 - dx 272.2, 401.1 RN,LJ,MS 04/03/2013 fax [phone] [facility] fasting lipid, Art Sondra, 03/30/2012 - cmp, dx 401.1, RN,PROFESSIONAL FIGHTER,MS 04/01/2012 272.2 fax [phone] Lisinopril/Hydrochlorothia 1 po qd 90tabs Sondra Cordova, 12/24/2010 - zide RN,PROFESSIONAL FIGHTER,MS 10/02/2014 10-12.5mg Tablets Lisinopril 1 po qd 90tabs Sondra Cordova, 11/19/2010 - 10mg Tablets RN,LJ,MS 12/24/2010 Lisinopril 1 po qd 30tabs Sondra Cordova, 10/29/2010 - 5mg Tablets RN,PROFESSIONAL FIGHTER,MS 11/19/2010 Hydrochlorothiazide 1 po qam 90tabs Sondra Cordova, 10/29/2010 - 12.5mg RN,PROFESSIONAL FIGHTER,MS 12/24/2010 Tablets Hydrochlorothiazide 1 tab po qam 30tabs Sondra Cordova, 07/25/2010 - 25mg Tablets RN,PROFESSIONAL FIGHTER,MS 10/29/2010 Metronidazole apply to face [id number] Sondra Cordova, 06/06/2008 - 0.75% Gel once daily RN,PROFESSIONAL FIGHTER,MS 01/21/2011 Fexofenadine HCL 1 po bid 60tabs Sondra Cordova, 05/31/2007 - 60mg Tablets RN,PROFESSIONAL FIGHTER,MS 07/20/2009 needs appt in october Metrogel Topical as directed bid 60gm Sondra Cordova, 03/17/2006 - .1% Gel RN,PROFESSIONAL FIGHTER,MS 06/06/2008 Franchesca one po bid 180tabs Sondra Cordova, 01/30/2003 - 60mg Tablets RN,PROFESSIONAL FIGHTER,MS 05/31/2007 Metrogel apply sparingly 3units Sondra Cordova, 03/01/2002 - 0.075% bid RN,PROFESSIONAL FIGHTER,MS 03/17/2006 Doxycycline Monohydrate 1 by mouth twice Unknown - 100mg a day 05/02/2019 Tablets Lidocaine HCL use four times a Unknown - 2% Gel day to affected 09/25/2015 area as needed Minocycline HCL 1 po qd (rosacea) Unknown - 100mg Tablets 05/16/2019 Prolia Im every 6months Unknown - 60mg/ml Solution 03/29/2015 Sodium Unknown - Sulfacetamide/Sulfur 10/20/2017 Cleanser 10-5% Emulsion Cerave twice a day Unknown - Cream 10/19/2017 Oracea 1 PO qd Unknown - 40mg Capsules DR 10/01/2012 Finacea Unknown - 15% Gel 03/27/2011 Boniva 1 PO Q Month With 1Tabs Unknown - 150mg Tablets Water On Empty 03/26/2012 Stomach And Then Wait One Hour Before Drinking Eating Or Medication Climara Pro patch Unknown - 05/30/2007 Evista Unknown - 03/26/2012 Immunizations CPT Code Status Date Vaccine Lot # [id number] Given 12/05/2018 Shingrix (Shingles) Zoster Vaccine HZV, Recombinant, Subunit, Adj 83425 Given 10/04/2018 Shingrix (Shingles) Zoster Vaccine HZV, Recombinant, Subunit, Adj 32814 Given 07/29/2018 Influenza Vac, Quadrivalent, Split, 0.5mL Dosage, Im Use 12736 Given 08/01/2017 Influenza Vaccine Quadrivalent Preser/Antibiotic Free [place] Use 65157 Given 08/14/2016 Fluzone Highdose Age 65 And Over Preservative & Antibiotic Free 12454 Given 10/02/2015 Prevnar 13 Pneumococal Conjugate Vaccine [id number] Q2037 Given 08/20/2015 Fluvirin Immunization 49063 Given 07/26/2015 Tdap (Adacel) Ages 7 And Above Only Q2038 Given 08/09/2014 Fluzone Trivalent Immunization Q2037 Given 08/07/2014 Fluvirin Immunization 31215 Given 10/04/2013 Pneumococcal 23 Immunization Adult Or [id number] Immunosuppressed Patient Q2035 Given 08/10/2013 Afluria Imunization Q2037 Given 08/07/2012 Fluvirin Immunization Q2036 Given 07/24/2011 Flulaval Immunization [id number] 06797 Given 10/29/2010 Zoster (Zostavax) [id number] 70514 Given 07/09/2010 Afluria Or Fluvirin Flu Vac Intramuscular [id number] 43200 Given 05/31/2007 Tdap (Adacel) Ages 7 And Above Only [id number] 67730 Given 02/24/2000 Immunization Td 7 Yrs Or Older Vital Signs Date Vital Result Comment 05/17/2019 10:07am Body Temperature 97.5 F Weight 141.00 lb Heart Rate 72 /min BP Systolic 108 mmHg BP Diastolic 80 mmHg Height 65 inches 5'5" BMI (Body Mass Index) 23.5 kg/m2 10/21/2018 8:51am Body Temperature 98.3 F Weight [...] Date Facility Test Result H/L Range Note Lipid 05/17/2019 [facility] Cholesterol 201 mg/dL High 50-199 Triglycerides 64 mg/dL 30-200 HDL 86 mg/dL High 35-85 1 Chol/ HDL Ratio 2.3 ratio Low 3.7-5.6 VLDL 13 mg/dL 2-29 LDL (Calc) 102 mg/dL High 20-99 2 Comprehensive Met Panel[facility] 05/17/2019 [facility] Sodium 138 mmol/L 135- 146 3 Potassium 4.2 mmol/L 3.5-5.2 Chloride# 100 mmol/L 97-110 4 Carbon Dioxide 30 mmol/L 24-34 Calcium 9.6 mg/dL 8.5-10.5 5 Glucose 105 mg/dL 70-105 BUN 12 mg/dL 6-26 Creatinine 0.6 mg/dL 0.5-1.4 Total Protein 6.4 g/dL 6.0-8.0 Albumin 4.1 g/dL 3.6-4.9 Globulin 2.3 g/dL 2.0-3.5 A/G Ratio 1.8 Ratio 1.0-2.2 Total Bilirubin 0.6 mg/dL 0.1-1.3 Alkaline Phosphatase 58 U/L 24-140 Alt 12 U/L 3-42 Ast 20 U/L 8-42 Anion Gap 8 mmol/L 5-15 6 Female Egfr 91 >60 7 Male Egfr 100 >60 8 Laboratory test finding 05/17/2019 [facility] TSH 1.81 uIU/mL 0.35-4.94 Comprehensive Met Panel[facility] 10/21/2018 [facility] Sodium 140 mmol/L 135- 146 9 Potassium 4.1 mmol/L 3.5-5.2 Chloride# 99 mmol/L 97-110 10 Carbon Dioxide 32 mmol/L 24-34 Glucose 101 mg/dL 70-105 BUN 16 mg/dL 6-26 Creatinine 0.6 mg/dL 0.5-1.4 Calcium 9.6 mg/dL 8.5-10.2 Total Protein 6.5 g/dL 6.0-8.0 Albumin 4.3 g/dL 3.6-4.9 Globulin 2.2 g/dL 2.0-3.5 A/G Ratio 2.0 Ratio 1.0-2.2 Total Bilirubin 0.6 mg/dL 0.1-1.3 Alkaline Phosphatase 71 U/L 24-140 Alt 15 U/L 3-42 Ast 22 U/L 8-42 Selene Egfr >60 >60 11 Non Selene Egfr >60 >60 12 Anion Gap 9 mmol/L 5-15 13 Lipid 10/21/2018 [facility] Cholesterol 203 mg/dL High 50-199 Triglycerides 58 mg/dL 30-200 HDL 83 mg/dL 35-85 14 Chol/ HDL Ratio 2.4 ratio Low 3.7-5.6 VLDL 12 mg/dL 2-29 LDL (Calc) 109 mg/dL High 20-99 15 Lipid 04/19/2018 [facility] Cholesterol 186 mg/dL 50-199 Triglycerides 63 mg/dL 30-200 HDL 79 mg/dL 35-85 16 Chol/ HDL Ratio 2.3 ratio Low 3.7-5.6 VLDL 13 mg/dL 2-29 LDL (Calc) 94 mg/dL -99 17 Comprehensive Met Panel[facility] 04/19/2018 [facility] Sodium 140 mmol/L 135- 146 18 Potassium 4.0 mmol/L 3.5-5.2 Chloride# 102 mmol/L 97-110 19 Carbon Dioxide 30 mmol/L 24-34 Glucose 100 mg/dL 70-105 BUN 14 mg/dL 6-26 Creatinine 0.7 mg/dL 0.5-1.4 Calcium 9.4 mg/dL 8.5-10.2 Total Protein 6.0 g/dL 6.0-8.0 Albumin 4.0 g/dL 3.6-4.9 Globulin 2.0 g/dL 2.0-3.5 A/G Ratio 2.0 Ratio 1.0-2.2 Total Bilirubin 0.5 mg/dL 0.1-1.3 Alkaline Phosphatase 70 U/L 24-140 Alt 18 U/L 3-42 Ast 24 U/L 8-42 Selene Egfr >60 >60 20 Non Selene Egfr >60 >60 21 Anion Gap 8 mmol/L 5-15 22 Laboratory test finding 04/19/2018 [facility] TSH 2.68 uIU/mL 0.35-4.94 Lipid 10/20/2017 [facility] Cholesterol 201 mg/dL High 50-199 Triglycerides 62 mg/dL 30-200 HDL 82 mg/dL - 23 Chol/ HDL Ratio 2.5 ratio Low 3.7-5.6 VLDL 12 mg/dL 2-29 LDL (Calc) 107 mg/dL High -99 24 Comprehensive Met Panel[facility] 10/20/2017 [facility] Sodium 140 mmol/L 135- 146 25 Potassium 4.1 mmol/L 3.5-5.2 Chloride# 103 mmol/L 97-110 26 Carbon Dioxide 27 mmol/L 24-34 Glucose 97 mg/dL 70-105 Creatinine 0.7 mg/dL 0.5-1.4 Calcium 9.5 mg/dL 8.5-10.2 Total Protein 6.6 g/dL 6.0-8.0 Albumin 4.5 g/dL 3.6-4.9 Globulin 2.1 g/dL 2.0-3.5 A/G Ratio 2.1 Ratio 1.0-2.2 Total Bilirubin 0.4 mg/dL 0.1-1.3 Alkaline Phosphatase 79 U/L 24-140 Alt 13 U/L 3-42 Ast 20 U/L 8-42 Selene Egfr >60 >60 27 Non Selene Egfr >60 >60 28 Anion Gap 10 mmol/L 7-16 29 BUN 17 mg/dL 6-26 Lipid 04/06/2017 [facility] Cholesterol 195 mg/dL 50-199 Triglycerides 58 mg/dL 30-200 HDL 85 mg/dL 35-85 30 Chol/ HDL Ratio 2.3 ratio Low 3.7-5.6 VLDL 12 mg/dL 2-29 LDL (Calc) 98 mg/dL 20-99 31 Comprehensive Metabolic (CMP) 04/06/2017 [facility] Sodium 137 mmol/L 135- 146 32 Potassium 3.8 mmol/L 3.5-5.2 Chloride# 101 mmol/L 97-110 33 Carbon Dioxide 27 mmol/L 24-34 Glucose 103 mg/dL 70-105 BUN 14 mg/dL 6 Creatinine 0.7 mg/dL 0.5-1.4 Calcium 9.5 mg/dL 8.5-10.2 Total Protein 6.6 g/dL 6.0-8.0 Albumin 4.3 g/dL 3.6-4.9 Globulin 2.3 g/dL 2.0-3.5 A/G Ratio 1.9 Ratio 1.0-2.2 Total Bilirubin 0.5 mg/dL 0.1-1.3 Alkaline Phosphatase 82 U/L 24-140 Alt 15 U/L 3-42 Ast 21 U/L 8- Selene Egfr >60 >60 34 Non Selene Egfr >60 >60 35 Anion Gap 13 mmol/L 7-16 36 Laboratory test 04/06/2017 [facility] TSH 2.54 uIU/mL 0.35-4.94 finding CBS W/Automated 12/16/2016 [facility] White Blood 6.0 K/ uL N 3.1-10.7 37 Diff (315)- - Count Red Blood Count [...] 40.4-72.8 Lymph % 24.0 % N 20.0-42.0 Wayne % 12.2 % N 4.3-13.2 Eo% 1.3 % N 0.0-6.6 Bas% 0.5 % N 0.0-1.1 Neut# 3.70 K/uL N 1.8-7.0 Lymph # 1.43 K/uL N 1.0-4.0 Wayne # 0.73 K/uL N 0.3-0.9 Eos # 0.08 K/uL N 0.0-0.5 Baso # 0.03 K/uL N 0.0-0.1 Comprehensive Metabolic 12/16/2016 [facility] Glucose 114 mg/dL High 74-106 Panel (315)- - BUN 15 mg/dL N 7-18 Creatinine 0.9 mg/dL N 0.6-1.3 Glom Filtration Rate, Estimate >60 mL/min >60 If >60 mL/min >60 38 BUN/Creat 16.6 ratio Sodium 142 mmol/L N [...] 101 U/L N 45-117 Laboratory test 12/16/2016 [facility] CA 27.29 15.0 U/mL 0.0-38.6 39 finding (315)- - Comprehensive 10/06/2016 [facility] Sodium 135 mmol/L 134-142 Metabolic (CMP) Potassium [...] 10 mmol/L 6-14 Selene Egfr >60 >60 40 Non Selene Egfr >60 >60 41 Lipid 10/06/2016 [facility] Cholesterol 188 mg/dL 50-199 Triglycerides 62 mg/dL 30-200 HDL 77 mg/dL 35-85 42 Chol/ HDL Ratio 2.4 ratio Low 3.7-5.6 VLDL 12 mg/dL 2-29 LDL (Calc) 99 mg/dL 20-99 43 Laboratory test finding 10/06/2016 [facility] TSH 2.27 uIU/mL 0.35-4.94 CBC With Auto Diff 10/06/2016 [facility] WBC 5.5 K/uL 4.1-11.0 RBC 4.62 M/uL [...] Abs Basophils 0.0 K/uL 0.0-0.3 Lipid 04/03/2016 [facility] Cholesterol 199 mg/dL 50-199 Triglycerides 125 mg/dL 30-200 HDL 73 mg/dL 35-85 44 Chol/ HDL Ratio 2.7 ratio Low 3.7-5.6 VLDL 25 mg/dL 2-29 LDL (Calc) 101 mg/dL High 20-99 45 Comprehensive Metabolic (CMP) 04/03/2016 [facility] Sodium 135 mmol/L 134- 142 Potassium [...] Egfr >60 >60 47 Laboratory test finding 04/03/2016 [facility] TSH 2.68 uIU/mL 0.35-4.94 Lipid 10/02/2015 [facility] Cholesterol 175 mg/dL 50-199 Triglycerides 106 mg/dL 30-200 HDL 71 mg/dL 35-85 48 Chol/ HDL Ratio 2.5 ratio Low 3.7-5.6 VLDL 21 mg/dL 2-29 LDL (Calc) 83 mg/dL 20-99 49 Comprehensive Metabolic (CMP) 10/02/2015 [facility] Sodium 135 mmol/L 134- 142 Potassium 4.0 mmol/L 3.5-5.2 Chloride 99 mmol/L 97-109 Carbon Dioxide 33 mmol/L 24-34 Glucose 124 mg/dL High 70-105 BUN 15 mg/dL 6-26 Creatinine 0.6 mg/dL 0.5-1.4 Calcium 9.1 mg/dL 8.5-10.2 Total Protein 6.1 g/dL 6.0-8.0 Albumin 3.9 g/dL 3.6-4.9 Globulin 2.2 g/dL 2.0-3.5 A/G Ratio 1.8 Ratio 1.0-2.2 Total Bilirubin 0.2 mg/dL 0.1-1.3 Alkaline Phosphatase 77 U/L 24-140 Alt 9 U/L 3-42 Ast 15 U/L 8-42 Anion Gap 7 mmol/L 6-14 Selene Egfr >60 >60 50 Non Selene Egfr >60 >60 51 Laboratory test finding 04/02/2015 [facility] Vitamin B12 >1500 pg/mL High 180-914 TSH 1.87 uIU/mL 0.35-4.94 Comprehensive Metabolic (CMP) 04/02/2015 [facility] Sodium 138 [...] 11 mmol/L 6-14 Selene Egfr >60 >60 52 Non Selene Egfr >60 >60 53 Lipid 04/02/2015 [facility] Cholesterol 187 mg/dL 50-199 Triglycerides 48 mg/dL 30-200 HDL 86 mg/dL High 35-85 54 Chol/ HDL Ratio 2.2 ratio Low 3.7-5.6 VLDL 10 mg/dL 2-29 LDL (Calc) 91 mg/dL -99 55 Lipid 10/02/2014 [facility] Cholesterol 175 mg/dL 50-199 Triglycerides 54 mg/dL 30-200 HDL 84 mg/dL 56 Chol/ HDL Ratio 2.1 ratio Low 3.7-5.6 VLDL 11 mg/dL 2 LDL (Calc) 80 mg/dL -99 57 Comprehensive Metabolic (CMP) 10/02/2014 [facility] Sodium 138 [...] 12 mmol/L 6-14 Selene Egfr >60 >60 58 Non Selene Egfr >60 >60 59 Laboratory test finding 03/30/2014 [facility] TSH 1.76 [...] 7 mmol/L 6-14 Selene Egfr >60 >60 60 Non Selene Egfr >60 >60 61 Lipid 03/30/2014 [facility] Cholesterol 176 mg/dL 50-199 Triglycerides 50 mg/dL 30-200 HDL 83 mg/dL 35-85 62 Chol/ HDL Ratio 2.1 ratio Low 3.7-5.6 VLDL 10 mg/dL 2-29 LDL (Calc) 83 mg/dL 20-99 63 Comprehensive Metabolic (CMP) 10/04/2013 [facility] Sodium 136 [...] 20 U/L 8-42 Anion Gap 8 mmol/L 6- Selene Egfr >60 >60 64 Non Selene Egfr >60 >60 65 Lipid 10/04/2013 [facility] Cholesterol 169 mg/dL 50-199 Triglycerides 43 mg/dL 30-200 HDL 81 mg/dL 35-85 66 Chol/ HDL Ratio 2.1 ratio Low 3.7-5.6 VLDL 9 mg/dL 2-29 LDL (Calc) 79 mg/dL 20-99 67 Laboratory test 09/02/2013 [facility] Stool Occult NEG X 3 finding Blood-RL Laboratory test 04/04/2013 [facility] TSH 2.500 mIU/L (0.360-4. 68, 69 finding 170) Vit D,25 Hydroxy 56 NG/ML (31-100) 70 Lipid 04/04/2013 [facility] Cholesterol @ 213 mg/dL High (0-200) Triglyceride @ 87 mg/dL (30-200) HDL Cholesterol @ 94 mg/dL (>40) 71 Chol/HDL Ratio 2.3 RATIO 72 LDL Chol (Calc) 102 mg/dL (<130) 73 Comprehensive Metabolic (CMP) 04/04/2013 [facility] Sodium 139 [...] U/L (11-39) Alt (SGPT) 25 U/L (12-78) 74 GFR 77 ML/MIN/1.73M2 (>59) GFR ( Amer) >90 ML/MIN/1.73M2 (>59) GFR Interpretation (SEE NOTE) 75 Comprehensive Metabolic (CMP) 09/26/2011 [facility] Sodium 140 [...] >60 76 Selene Egfr >60 >60 77 Lipid 09/26/2011 [facility] Cholesterol 224 mg/dL High 50-199 Triglycerides 58 mg/dL 10-150 HDL 94 mg/dL High 35-85 78 Chol/ HDL Ratio 2.4 ratio Low 3.7-5.6 VLDL 12 mg/dL 2-29 LDL (Calc) 118 mg/dL 20-129 79 Laboratory test finding 09/26/2011 [facility] TSH 1.54 uIU/mL 0.34-5.60 Vitamin B12 279 pg/mL 180-914 CPK 68 U/L 38-234 Lipid 03/31/2011 [facility] Cholesterol 186 mg/dL 50-199 Triglycerides 47 mg/dL 10-150 HDL 79 mg/dL 35-85 80 Chol/ HDL Ratio 2.4 ratio Low 3.7-5.6 VLDL 9 mg/dL 2-29 LDL (Calc) 98 mg/dL 20-129 81 Comprehensive Metabolic (CMP) 03/31/2011 [facility] Sodium 140 [...] mmol/L 8-16 Non Selene Egfr >60 >60 82 Selnee Egfr >60 >60 83 Comprehensive Metabolic (CMP) 03/27/2011 [facility] Sodium 139 [...] mmol/L 8-16 Non Selene Egfr >60 >60 84 Selene Egfr >60 >60 85 Rejected Test Reason Cancelled Lipid 03/27/2011 [facility] Cholesterol 170 mg/dL 50-199 Triglycerides 62 mg/dL 10-150 HDL 78 mg/dL 35-85 86 Chol/ HDL Ratio 2.2 ratio Low 3.7-5.6 VLDL 12 mg/dL 2-29 LDL (Calc) 80 mg/dL 20-129 87 Rejected Test Reason Cancelled Basic (BMP) 12/24/2010 [facility] Na 139 mmol/L 135-144 K 4.9 mmol/L 3.6-5.2 CL 101 mmol/L 97-110 Co2 32 mmol/L 23-32 Glu 102 mg/dL 70-105 BUN 16 mg/dL 6-22 Creat 0.8 mg/dL 0.5-1.3 CA 9.6 mg/dL 8.6-10.2 Anion Gap 11 mmol/L 8-16 BUN/CR 20 ratio 12-20 NAAeGFR >60 >60 88 AAeGFR >60 >60 89 Lipid Panel 10/29/2010 [facility] (Do not Use) Cholesterol 212 mg/dL High 50-199 90 [facility] [place] [address] [phone] Triglycerides 50 mg/dL 10-150 HDL 110 mg/dL High 35-85 91 Chol/HDL Ratio 1.9 Ratio Low 3.7-5.6 92 VLDL 10 mg/dL 2-29 LDL (Calc) 92 mg/dL 20-129 93 [facility] 10/29/2010 [facility] (Do not Use) Sodium 141 mmol/L 135-144 [facility] [place] [address] [phone] Potassium 4.0 mmol/L 3.6-5.2 Chloride 102 mmol/L [...] 8-16 GFR Calculation > 60 mL/min 60-175 94 GFR For > 60 mL/min 60-175 95 [facility] 07/25/2010 [facility] (Do not Use) Sodium 139 mmol/L 135-144 [facility] [place] [address] [phone] Potassium 4.3 mmol/L 3.6-5.2 Chloride 103 mmol/L [...] 8-16 GFR Calculation > 60 mL/min 60-175 96 GFR For > 60 mL/min 60-175 97 Lipid Panel 07/25/2010 [facility] (Do not Use) Cholesterol 271 mg/dL High 50-199 [facility] [place] [address] [phone] Triglycerides 71 mg/dL 10-150 HDL 80 mg/dL 35-85 98 Chol/HDL Ratio 3.4 Ratio Low 3.7-5.6 99 VLDL 14 mg/dL 2-29 LDL (Calc) 177 mg/dL High 20-129 100 Laboratory test 07/25/2010 [facility] (Do not Use) Vitamin D, 25 52 ng/mL 31-100 finding [facility] [place] [address] [phone] Laboratory test 07/25/2010 [facility] (Do not Use) TSH 1.54 uIU/ml 0.34 -5.60 finding [facility] [place] [address] [phone] CBC With Auto 07/25/2010 [facility] (Do not Use) WBC 6.0 K/ul 4.0-10.9 Diff [facility] [place] [address] [phone] RBC 4.65 M/ul 4.20-5.40 Hemoglobin 14.3 GM/dl [...] 0.0 K/ul 0.0-0.3 Hematology Comment (Comm2) N/A CBC 02/01/2004 [facility] (Do not Use) WBC 8.1 K/ul 4.1-10.9 [facility] [place] [address] [phone] RBC 4.64 M/ul 4.20-6.30 Hemoglobin 13.8 GM/dl [...] not Use) Cholesterol 201 mg/dL High 50-199 [facility] [place] [address] [phone] Triglycerides 64 mg/dL 30-200 HDL 59 mg/dL 35-85 Chol/HDL Ratio 3.4 Ratio VLDL 13 mg/dL LDL (Calc) 129 mg/dL 20-129 CMP 02/01/2004 [facility] (Do not Use) Sodium 140 mmol/L 135-145 [facility] [place] [address] [phone] Potassium 4.0 mmol/L 3.4-5.3 Chloride 104 mmol/L [...] Use) TSH 2.49 uIU/ml 0.50 -6.00 finding [facility] [place] [address] [phone] 1 Per NCEP ATP III Guidelines: Results lower than 40 mg/dL are suggestive of increased risk for coronary artery disease. Results > or = to 60 mg/dL are considered a negative risk factor. 2 Per NCEP ATP III Guidelines: Normal Population <130 Patients with medical conditions: CHD/DM Optimal: <100 Borderline high: 130-159 High: 160-189 Very high: >189 3 Updated reference range on new analyzer 4 Updated reference range on new analyzer 5 Updated reference range 02-23-2019 6 Updated Reference Range 7 Concerning GFR Guidelines for Americans: Normal function or mild renal disease, if clinically at risk: >/= 60 mL/min Moderately decreased: 30-59 Severely decreased: 15-29 Renal failure: <15 There is reduced accuracy above 60ml/min/1.73 m squared, but the numeric value may be clinically useful in the near 60 range 8 Concerning GFR Guidelines: Normal function or mild renal disease, if clinically at risk: >/= 60 mL/min Moderately decreased: 30-59 Severely decreased: 15-29 Renal failure: <15 There is reduced accuracy above 60ml/min/1.73 m squared, but the numeric value may be clinically useful in the near 60 range Glomerular Filtration Rate (GFR) is estimated based on the CKD-EPI equation, which assumes a steady state for [...] drugs that are excreted by the kidneys. 9 Updated reference range on new analyzer 10 Updated reference range on new analyzer 11 Concerning GFR Guidelines for Americans: Normal function or mild renal disease, if clinically at risk: >/= 60 mL/min Moderately decreased: 30-59 Severely decreased: 15-29 Renal failure: <15 12 Concerning GFR Guidelines: Normal function or mild renal disease, if clinically at risk: >/= 60 mL/min Moderately decreased: 30-59 Severely decreased: 15-29 [...] drugs that are excreted by the kidneys. 13 Updated Reference Range 14 Per NCEP ATP III Guidelines: Results lower than 40 mg/dL are suggestive of increased risk for coronary artery disease. Results > or = to 60 mg/dL are considered a negative risk factor. 15 Per NCEP ATP III Guidelines: Normal Population <130 Patients with medical conditions: CHD/DM Optimal: <100 Borderline high: 130-159 High: 160-189 Very high: >189 16 Per NCEP ATP III Guidelines: Results lower than 40 mg/dL are suggestive of increased risk for coronary artery disease. Results > or = to 60 mg/dL are considered a negative risk factor. 17 Per NCEP ATP III Guidelines: Normal Population <130 Patients with medical conditions: CHD/DM Optimal: <100 Borderline high: 130-159 High: 160-189 Very high: >189 18 Updated reference range on new analyzer 19 Updated reference range on new analyzer 20 Concerning GFR Guidelines for Americans: Normal function or mild renal disease, if clinically at risk: >/= 60 mL/min Moderately decreased: 30-59 Severely decreased: 15-29 Renal failure: <15 21 Concerning GFR Guidelines: Normal function or mild renal disease, if clinically at risk: >/= 60 mL/min Moderately decreased: 30-59 Severely decreased: 15-29 [...] drugs that are excreted by the kidneys. 22 Updated Reference Range 23 Per NCEP ATP III Guidelines: Results lower than 40 mg/dL are suggestive of increased risk for coronary artery disease. Results > or = to 60 mg/dL are considered a negative risk factor. 24 Per NCEP ATP III Guidelines: Normal Population <130 Patients with medical conditions: CHD/DM Optimal: <100 Borderline high: 130-159 High: 160-189 Very high: >189 25 Updated reference range on new analyzer 26 Updated reference range on new analyzer 27 Concerning GFR Guidelines for Americans: Normal function or mild renal disease, if clinically at risk: >/= 60 mL/min Moderately decreased: 30-59 Severely decreased: 15-29 Renal failure: <15 28 Concerning GFR Guidelines: Normal function or mild renal disease, if clinically at risk: >/= 60 mL/min Moderately decreased: 30-59 Severely decreased: 15-29 [...] drugs that are excreted by the kidneys. 29 Updated reference range on new analyzer 30 Per NCEP ATP III Guidelines: Results lower than 40 mg/dL are suggestive of increased risk for coronary artery disease. Results > or = to 60 mg/dL are considered a negative risk factor. 31 Per NCEP ATP III Guidelines: Normal Population <130 Patients with medical conditions: CHD/DM Optimal: <100 Borderline high: 130-159 High: 160-189 Very high: >189 32 Updated reference range on new analyzer 33 Updated reference range on new analyzer 34 Concerning GFR Guidelines for Americans: Normal function or mild renal disease, if clinically at risk: >/= 60 mL/min Moderately decreased: 30-59 Severely decreased: 15-29 Renal failure: <15 35 Concerning GFR Guidelines: Normal function or mild renal disease, if clinically at risk: >/= 60 mL/min Moderately decreased: 30-59 Severely decreased: 15-29 [...] drugs that are excreted by the kidneys. 36 Updated reference range on new analyzer 37 C50.912 38 Note: Persistent reduction for 3 months or more in an eGFR <60 mL/min/1.73 m2 defines CKD. Patients with eGFR values >/=60 mL/min/1.73 m2 may also have CKD if evidence of persistent proteinuria is present. The original MDRD equation for estimated GFR is not valid for patients less than 18 years of age. Additional information may be found at [email or web address].org. 39 Gaby [email or web address] methodology Values obtained with different assay methods or kits cannot be used interchangeably. Results cannot be interpreted as absolute evidence of the presence or absence of malignant disease. Performed at: RN - [facility] [address] [id number] Jacquard Loom Card Changer: Eden Schmitt MD, Phone: [phone] 40 Concerning GFR Guidelines for Americans: Normal function or mild renal disease, if clinically at risk: >/= 60 mL/min Moderately decreased: 30-59 Severely decreased: 15-29 Renal failure: <15 41 Concerning GFR Guidelines: Normal function or mild renal disease, if clinically at risk: >/= 60 mL/min Moderately decreased: 30-59 Severely decreased: 15-29 [...] drugs that are excreted by the kidneys. 42 Per NCEP ATP III Guidelines: Results lower than 40 mg/dL are suggestive of increased risk for coronary artery disease. Results > or = to 60 mg/dL are considered a negative risk factor. 43 Per NCEP ATP III Guidelines: Normal Population <130 Patients with medical conditions: CHD/DM Optimal: <100 Borderline high: 130-159 High: 160-189 Very high: >189 44 Per NCEP ATP III Guidelines: Results lower than 40 mg/dL are suggestive of increased risk for coronary artery disease. Results > or = to 60 mg/dL are considered a negative risk factor. 45 Per NCEP ATP III Guidelines: Normal Population <130 Patients with medical conditions: CHD/DM Optimal: <100 Borderline high: 130-159 High: 160-189 Very high: >189 46 Concerning GFR Guidelines for Americans: Normal function or mild renal disease, if clinically at risk: >/= 60 mL/min Moderately decreased: 30-59 Severely decreased: 15-29 Renal failure: <15 47 Concerning GFR Guidelines: Normal function or mild renal disease, if clinically at risk: >/= 60 mL/min Moderately decreased: 30-59 Severely decreased: 15-29 [...] that are excreted by the kidneys. 48 Per NCEP ATP III Guidelines: Results lower than 40 mg/dL are suggestive of increased risk for coronary artery disease. Results > or = to 60 mg/dL are considered a negative risk factor. 49 Per NCEP ATP III Guidelines: Normal Population <130 Patients with medical conditions: CHD/DM Optimal: <100 Borderline high: 130-159 High: 160-189 Very high: >189 50 Concerning GFR Guidelines for Americans: Normal function or mild renal disease, if clinically at risk: >/= 60 mL/min Moderately decreased: 30-59 Severely decreased: 15-29 Renal failure: <15 51 Concerning GFR Guidelines: Normal function or mild renal disease, if clinically at risk: >/= 60 mL/min Moderately decreased: 30-59 Severely decreased: 15-29 [...] drugs that are excreted by the kidneys. 52 Concerning GFR Guidelines for Americans: Normal function or mild renal disease, if clinically at risk: >/= 60 mL/min Moderately decreased: 30-59 Severely decreased: 15-29 Renal failure: <15 53 Concerning GFR Guidelines: Normal function or mild renal disease, if clinically at risk: >/= 60 mL/min Moderately decreased: 30-59 Severely decreased: 15-29 [...] risk for coronary artery disease. Results > or = to 60 mg/dL are considered a negative risk factor. 55 Per NCEP ATP III Guidelines: Normal Population <130 Patients with medical conditions: CHD/DM Optimal: <100 Borderline high: 130-159 High: 160-189 Very high: >189 56 Per NCEP ATP III Guidelines: Results lower than 40 mg/dL are suggestive of increased risk for coronary artery disease. Results > or = to 60 mg/dL are considered a negative risk factor. 57 Per NCEP ATP III Guidelines: Normal Population <130 Patients with medical conditions: CHD/DM Optimal: <100 Borderline high: 130-159 High: 160-189 Very high: >189 58 Concerning GFR Guidelines for Americans: Normal function or mild renal disease, if clinically at risk: >/= 60 mL/min Moderately decreased: 30-59 Severely decreased: 15-29 Renal failure: <15 59 Concerning GFR Guidelines: Normal function or mild renal disease, if clinically at risk: >/= 60 mL/min Moderately decreased: 30-59 Severely decreased: 15-29 [...] that are excreted by the kidneys. 60 Concerning GFR Guidelines for Americans: Normal function or mild renal disease, if clinically at risk: >/= 60 mL/min Moderately decreased: 30-59 Severely decreased: 15-29 Renal failure: <15 61 Concerning GFR Guidelines: Normal function or mild renal disease, if clinically at risk: >/= 60 mL/min Moderately decreased: 30-59 Severely decreased: 15-29 [...] drugs that are excreted by the kidneys. 62 Per NCEP ATP III Guidelines: Results lower than 40 mg/dL are suggestive of increased risk for coronary artery disease. Results > or = to 60 mg/dL are considered a negative risk factor. 63 Per NCEP ATP III Guidelines: Normal Population <130 Patients with medical conditions: CHD/DM Optimal: <100 Borderline high: 130-159 High: 160-189 Very high: >189 64 Concerning GFR Guidelines for Americans: Normal function or mild renal disease, if clinically at risk: >/= 60 mL/min Moderately decreased: 30-59 Severely decreased: 15-29 Renal failure: <15 65 Concerning GFR Guidelines: Normal function or mild renal disease, if clinically at risk: >/= 60 mL/min Moderately decreased: 30-59 Severely decreased: 15-29 [...] drugs that are excreted by the kidneys. 66 Per NCEP ATP III Guidelines: Results lower than 40 mg/dL are suggestive of increased risk for coronary artery disease. Results > or = to 60 mg/dL are considered a negative risk factor. 67 Per NCEP ATP III Guidelines: Normal Population <130 Patients with medical conditions: CHD/DM Optimal: <100 Borderline high: 130-159 High: 160-189 Very high: >189 68 Sent directly to [facility] [employer]. 69 Unless otherwise specified, testing performed by [facility] [address] [place] [id number] 70 A REVIEW OF THE LITERATURE SUGGESTS THE FOLLOWING RANGES FOR THE CLASSIFICATION OF 25-OH VITAMIN D STATUS: VITAMIN D STATUS 25-OH VITAMIN D DEFICIENCY <20 NG/ML INSUFFICIENCY 20-30 NG/ML SUFFICIENCY 31 - 100 NG/ML TOXICITY > 100 NG/ML A PEDIATRIC REFERENCE RANGE HAS NOT BEEN ESTABLISHED USING THIS METHOD. Unless otherwise specified, testing [email or web address] [address] 71 PER NCEP ATP III GUIDELINES: RESULTS LOWER THAN 40 MG/DL ARE SUGGESTIVE OF INCREASED RISK FOR CORONARY ARTERY DISEASE. RESULTS > OR = TO 60 MG/DL ARE CONSIDERED A NEGATIVE RISK FACTOR. 72 INTERPRETATION OF CHOL-HDL RATIO CHD RISK FEMALE MALE VERY HIGH >8.3 >14.3 HIGH 5.6- 8.3 6.7- 14.3 AVERAGE 3.7- 5.6 4.0- 6.7 BELOW AVERAGE 2.5- 3.7 2.7- 4.0 PROTECTED <2.5 <2.7 73 PER NCEP ATP III GUIDELINES: OPTIMAL < 100 NEAR OPTIMAL 100 - 129 BORDERLINE HIGH 130 - 159 HIGH 160 - 189 VERY HIGH > 189 Unless otherwise specified, testing performed by [email or web address] [place] [address] 74 NOTE: [facility] METHOD AND REFERENCE RANGE EFFECTIVE 13 75 NORMAL KIDNEY FUNCTION OR MILD DISEASE - GFR >OR= 60 CHRONIC KIDNEY DISEASE - GFR 15 - 59 RENAL FAILURE - GFR <15 Est. GFR calculation based on the MDRD study equation, which assumes a steady state for creatinine. Est. GFR should not be used for medication dosing. Unless otherwise specified, testing performed [email or web address] [address] 76 Concerning GFR Guidelines: Normal function or mild renal disease, if clinically at risk: >/= 60 mL/min Moderately decreased: 30-59 Severely decreased: 15-29 [...] mild renal disease, if clinically at risk: >/= 60 mL/min Moderately decreased: 30-59 Severely decreased: 15-29 Renal failure: <15 78 Per NCEP ATP III Guidelines: Results lower than 40 mg/dL are suggestive of increased risk for coronary artery disease. Results > or = to 60 mg/dL are considered a negative risk factor. 79 Per NCEP ATP III Guidelines: Optimal: <100 Near optimal: 100-129 Borderline high: 130-159 High: 160-189 Very high: >189 80 Per NCEP ATP III Guidelines: Results lower than 40 mg/dL are suggestive of increased risk for coronary artery disease. Results > or = to 60 mg/dL are considered a negative risk factor. 81 Per NCEP ATP III Guidelines: Optimal: <100 Near optimal: 100-129 Borderline high: 130-159 High: 160-189 Very high: >189 82 Concerning GFR Guidelines: Normal function or mild renal disease, if clinically at risk: >/= 60 mL/min Moderately decreased: 30-59 Severely decreased: 15-29 [...] drugs that are excreted by the kidneys. 83 Concerning GFR Guidelines for Americans: Normal function or mild renal disease, if clinically at risk: >/= 60 mL/min Moderately decreased: 30-59 Severely decreased: 15-29 Renal failure: <15 84 Concerning GFR Guidelines: Normal function or mild renal disease, if clinically at risk: >/= 60 mL/min Moderately decreased: 30-59 Severely decreased: 15-29 [...] drugs that are excreted by the kidneys. 85 Concerning GFR Guidelines for Americans: Normal function or mild renal disease, if clinically at risk: >/= 60 mL/min Moderately decreased: 30-59 Severely decreased: 15-29 Renal failure: <15 86 Per NCEP ATP III Guidelines: Results lower than 40 mg/dL are suggestive of increased risk for coronary artery disease. Results > or = to 60 mg/dL are considered a negative risk factor. 87 Per NCEP ATP III Guidelines: Optimal: <100 Near optimal: 100-129 Borderline high: 130-159 High: 160-189 Very high: >189 88 Concerning GFR Guidelines: Normal function or mild renal disease, if clinically at risk: >/= 60 mL/min Moderately decreased: 30-59 Severely decreased: 15-29 [...] excreted by the kidneys. 89 Concerning GFR Guidelines for Americans: Normal function or mild renal disease, if clinically at risk: >/= 60 mL/min Moderately decreased: 30-59 Severely decreased: 15-29 Renal failure: <15 90 FASTING 91 PER NCEP ATP III GUIDELINES: RESULTS LOWER THAN 40 MG/DL ARE SUGGESTIVE OF INCREASED RISK FOR CORONARY ARTERY DISEASE. RESULTS > OR = TO 60 MG/DL ARE CONSIDERED A NEGATIVE RISK FACTOR. 92 INTERPRETATION OF CHOL-HDL RATIO CHD RISK FEMALE MALE VERY HIGH >8.3 >14.3 HIGH 5.6 - 8.3 6.7 - 14.3 AVERAGE 3.7 - 5.6 4.0 - 6.7 BELOW AVERAGE 2.5 - 3.7 2.7 - 4.0 PROTECTED <2.5 <2.7 93 PER NCEP ATP III GUIDELINES: OPTIMAL: <100 NEAR OPTIMAL: 100 - 129 BORDERLINE HIGH: 130 - 159 HIGH: 160 - 189 VERY HIGH: >189 94 Concerning GFR GUIDELINES: Normal Function or Mild Renal Disease, if clinically at risk: >/= 60mL/min Moderately decreased: 30-59 Severely decreased: 15-29 Renal [...] drugs that are excreted by the kidneys. 95 Concerning GFR GUIDELINES: Normal Function or Mild Renal Disease, if clinically at risk: >/= 60mL/min Moderately decreased: 30-59 Severely decreased: 15-29 Renal Failure: <15 96 Concerning GFR GUIDELINES: Normal Function or Mild Renal Disease, if clinically at risk: >/= 60mL/min Moderately decreased: 30-59 Severely decreased: 15-29 Renal [...] drugs that are excreted by the kidneys. 97 Concerning GFR GUIDELINES: Normal Function or Mild Renal Disease, if clinically at risk: >/= 60mL/min Moderately decreased: 30-59 Severely decreased: 15-29 Renal Failure: <15 98 PER NCEP ATP III GUIDELINES: RESULTS LOWER THAN 40 MG/DL ARE SUGGESTIVE OF INCREASED RISK FOR CORONARY ARTERY DISEASE. RESULTS > OR = TO 60 MG/DL ARE CONSIDERED A NEGATIVE RISK FACTOR. 99 INTERPRETATION OF CHOL-HDL RATIO CHD RISK FEMALE MALE VERY HIGH >8.3 >14.3 HIGH 5.6 - 8.3 6.7 - 14.3 AVERAGE 3.7 - 5.6 4.0 - 6.7 BELOW AVERAGE 2.5 - 3.7 2.7 - 4.0 PROTECTED <2.5 <2.7 100 PER NCEP ATP III GUIDELINES: OPTIMAL: <100 NEAR OPTIMAL: 100 - 129 BORDERLINE HIGH: 130 - 159 HIGH: 160 - 189 VERY HIGH: >189 Procedures Date Code Description Status 03/15/2019 [id number] Mammogram Completed 06/29/2018 [id number] Mammogram Completed 04/19/2018 [id number] Electrocardiogram Complete Completed 05/28/2017 [id number] Mammogram Completed 10/06/2016 78398 Electrocardiogram Complete Completed 05/27/2016 [id number] Mammogram Completed 05/25/2015 [id number] Mammogram Completed 10/26/2014 [id number] Colonoscopy Completed 10/02/2014 61418 Electrocardiogram Complete Completed 10/04/2013 85117 Visual Screening Test Completed 10/04/2013 87900 Electrocardiogram Complete Completed 03/30/2012 86242 Electrocardiogram Complete Completed 07/25/2010 77459 Electrocardiogram Complete Completed 07/24/2009 72957 Remove Impacted Cerumen Requiring Instrumentation Completed 08/28/2006 09136 Shave Skin Lesion .6-1CM Trunk/Arm/Leg Completed Encounters Type Date Location Provider Dx Diagnosis Office Visit 10/21/2018 Sondra Mancuso, E78.2 Mixed hyperlipidemia 9:00a LJ FORDE,MS I10 Essential (primary) hypertension G57.12 Meralgia paresthetica, LEFT lower limb Office Visit 04/19/2018 9:00a Sondra Mancuso, Z00.00 Encntr for RNLJ,MS general adult medical exam w/o abnormal findings I10 Essential (primary) hypertension G57.12 Meralgia paresthetica, LEFT lower limb E78.2 Mixed hyperlipidemia Z68.23 Body mass index (BMI) 23.0-23.9, adult Office Visit 10/20/2017 9:00a Sondra Mancuso, Z00.00 Encntr for LJ FORDE,MS general adult medical exam w/o abnormal findings I10 Essential (primary) hypertension E78.2 Mixed hyperlipidemia G57.12 Meralgia paresthetica, LEFT lower limb Office Visit 04/06/2017 9:30a Sondra Mancuso, E78.2 Mixed hyperlipidemia RN,PROFESSIONAL FIGHTER,MS I10 Essential (primary) hypertension C50.912 Malignant neoplasm of unspecified site of LEFT female breast D70.9 Neutropenia, unspecified 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 G57.12 Meralgia paresthetica, LEFT lower limb Office Visit 10/06/2016 9:00a Sondra Mancuso, E78.2 Mixed hyperlipidemia RN,PROFESSIONAL FIGHTER,MS I10 Essential (primary) hypertension C50.912 Malignant neoplasm of unspecified site of LEFT female breast Z00.00 Encntr for general adult medical exam w/o abnormal findings Office Visit 04/03/2016 10:30a Sondra Mancuso, I10 Essential ( primary) RN,[employer]ESSIONAL FIGHTER,MS hypertension E78.2 Mixed hyperlipidemia G57.12 Meralgia paresthetica, LEFT lower limb Office Visit 10/02/2015 1:30p Sondra Mancuso, E78.2 Mixed hyperlipidemia RN,PROFESSIONAL FIGHTER,MS I10 Essential (primary) hypertension Z23 Encounter for immunization R20.8 Other disturbances of skin sensation Office Visit 04/02/2015 9:00a Sondra Mancuso, 272.2 Hyperlipidemia Mixed RN,PROFESSIONAL FIGHTER,MS 401.1 Hypertension Benign 355.1 Meralgia Paresthetica Office Visit 10/02/2014 9:00a Sondra Mancuso, 401.1 Hypertension Benign RN,PROFESSIONAL FIGHTER,MS 272.2 Hyperlipidemia Mixed V70.0 Exam (Adult) General Medical Routine AT Health Care Facility 355.1 Meralgia Paresthetica Office Visit 03/30/2014 9:30a Sondra Mancuso, 401.1 Hypertension Benign RN,PROFESSIONAL FIGHTER,MS 272.2 Hyperlipidemia Mixed 733.00 Osteoporosis Unspec V73.89 Screening Examination Viral Diseases Other Spec Office Visit 10/04/2013 9:00a Sondra Mancuso, 272.2 Hyperlipidemia Mixed RN,PROFESSIONAL FIGHTER,MS 401.1 Hypertension Benign V70.0 Exam (Adult) General Medical Routine AT Health Care Facility V07.2 Prophylactic Immunotherapy 355.1 Meralgia Paresthetica V03.82 Streptococcus Pneumoniae Vaccination Spec Other Office Visit 04/04/2013 9:00a Sondra Mancuso, 272.2 Hyperlipidemia Mixed RN,PROFESSIONAL FIGHTER,MS 401.1 Hypertension Benign 733.00 Osteoporosis Unspec 388.30 Tinnitus Unspecified 389.9 Hearing Loss Unspec 355.1 Meralgia Paresthetica Office Visit 10/04/2012 9:00a Sondra Mancuso, 401.1 Hypertension Benign RN,PROFESSIONAL FIGHTER,MS 272.2 Hyperlipidemia Mixed 782.0 Skin Sensation Disturbance Office Visit 03/30/2012 9:00a Sondra Mancuso, 401.1 Hypertension Benign RN,PROFESSIONAL FIGHTER,MS 272.2 Hyperlipidemia Mixed Office Visit 09/26/2011 8:30a Sondra Mancuso, 401.1 Hypertension Benign RN,PROFESSIONAL FIGHTER,MS 272.2 Hyperlipidemia Mixed 782.0 Skin Sensation Disturbance V58.69 Medications Nursing Home (Current) Use Encounter Office Visit 03/27/2011 9:30a Sondra Mancuso, 272.2 Hyperlipidemia Mixed RN,PROFESSIONAL FIGHTER,MS 401.1 Hypertension Benign Office Visit 12/24/2010 9:00a Sondra Mancuso, 401.1 Hypertension Benign RN,PROFESSIONAL FIGHTER,MS Office Visit 11/19/2010 9:30a Sondra Mancuso, 401.1 Hypertension Benign RN,PROFESSIONAL FIGHTER,MS Office Visit 10/29/2010 9:00a Sondra Mancuso, 401.1 Hypertension Benign RN,PROFESSIONAL FIGHTER,MS 272.2 Hyperlipidemia Mixed V05.8 Single Disease Spec Other Vaccination & Inoculation V07.2 Prophylactic Immunotherapy Office Visit 07/25/2010 9:00a Sondra Mancuso, 401.1 Hypertension Benign RN,[employer]OFESSIONAL FIGHTER,MS 733.00 Osteoporosis Unspec V17.49 Family HX Of Other Cardiovascular Diseases V78.9 Screening Blood & Blood Forming Organs Disorders Unspec Office Visit 07/09/2010 11:00a Mary Mancusoi, RN,PROFESSIONAL FIGHTER,MS 695.3 Rosacea 796.2 Blood Pressure Reading Elevated W/O Hypertension V04.81 Need For Prophylactic Vaccination & Inoculation/Influenza Office Visit 07/24/2009 8:00a Broderick ColmenaresSondra, RN,PROFESSIONAL FIGHTER,MS 695.3 Rosacea 380.4 Impacted Cerumen 796.2 Blood Pressure Reading Elevated W/O Hypertension 477.0 Rhinitis Allergic Due To Pollen Office Visit 09/19/2008 2:00p [facility] Sondra Cordova, 847.2 Sprains & Strains RN,[employer]ESSIONAL FIGHTER,MS Lumbar Office Visit 06/06/2008 3:30p [facility] Mary Cordovai, 695.3 Rosacea RN,PROFESSIONAL FIGHTER,MS Office Visit 05/31/2007 3:30p [facility] Mary Cordovai, 477.0 Rhinitis Allergic RN,PROFESSIONAL FIGHTER,MS Due To Pollen 695.3 Rosacea V07.2 Prophylactic Immunotherapy V06.1 Hbcluecyvw-Yvilytx-Freyplqa Combined (DTaP) Office Visit 08/24/2006 1:00p [facility] Sondra Cordova, 078.10 Viral Warts RN,PROFESSIONAL FIGHTER,MS Unspec Office Visit 03/10/2006 3:30p [facility] Mary Cordovai, 477.0 Rhinitis Allergic RN,PROFESSIONAL FIGHTER,MS Due To Pollen 695.3 Rosacea Office Visit 02/04/2005 3:30p [facility] Mary Cordovai, 477.0 Rhinitis Allergic RN,PROFESSIONAL FIGHTER,MS Due To Pollen 695.3 Rosacea V76.41 Screening Malignant Neoplasm Rectum Office Visit 02/01/2004 4:00p [facility] Mary Cordovai, 477.0 Rhinitis Allergic RN,PROFESSIONAL FIGHTER,MS Due To Pollen 695.3 Rosacea V17.3 History Family Ischemic Heart Disease V78.9 Screening Blood & Blood Forming Organs Disorders Unspec Office Visit 01/30/2003 3:30p [facility] Mary Cordovai, 477.0 Rhinitis Allergic RN,PROFESSIONAL FIGHTER,MS Due To Pollen 695.3 Rosacea Office Visit 12/10/2001 3:00p [facility] Mary Cordovai, 110.4 Dermatophytosis Foot RN,PROFESSIONAL FIGHTER,MS 477.0 Rhinitis Allergic Due To Pollen 695.3 Rosacea Plan of Treatment Future Appointment(s):10/20/2019 9:00 am - Sondra Cordova, RN,PROFESSIONAL FIGHTER,MS at [facility]05/17/2019 - Sondra Cordova, RN,PROFESSIONAL FIGHTER,MSZ00.01 Encounter for general adult medical examination with abnormal findingsComments:healthy woman, UTD with Mammo GIZZARD SKIN REMOVER deferred due to advanced age. will be due for FU colonoscopy 2019, pt is going to find out about GI vs surgeon. Davila for this, and let us know-due 10/2019/ Check labs. Pt independent in ADL and IADLs, no cognitive impairment and pt's family aware on end of life issues and have given pt Health care proxy. Safety and fall precautions stressed.Follow up:Followup:.I10 Essential (primary) hypertensionComments:well controlled, continue meds, check labs. continue to focus on healthy dietFollow up:Followup:.E78.2 Mixed hyperlipidemiaComments:Check labs, adjust meds as needed, healthy diet and exercise encouraged. FU 6mFollow up:Followup:.H02.403 Unspecified ptosis of bilateral eyelidsComments:rec'd plastics eye consult. Ptosis R>L upper lids, asked pt to discuss this with eye surgeon to see if he thinks it beneficial to be referred for thisH25.21 Age-related cataract, morgagnian type, RIGHT eyeComments:pt will continue under the care of Dr Moore.AllFollow up:Followup:.
--- OUTSIDE RECORDS SUMMARY | 2019-06-13 10:27 | XMS REPORT | Continuity of Care Document ---
:1950 External Reference #:[id number] Author Name Meet Moore MD Address [address] [place] [address] Care Team Providers Name Role Phone Catia Cordova N.P. 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 Unavailable Problems Active Problems Provider Date Malignant neoplasm of female breast Cindy Terrazas DO Onset: 06/26/2015 Dystrophia unguium Cindy Terrazas DO Onset: 07/27/2018 Vitamin D deficiency Cindy Terrazas DO Onset: 02/21/2019 Vitamin B deficiency Cindy Terrazas DO Onset: 02/21/2019 Social History Type Date Description Comments Sex Unknown Tobacco Use Start: Unknown Never Smoked Cigarettes Smoking Status Reviewed: 06/09/19 Never Smoked Cigarettes ETOH Use Currently consumes alcohol socially Tobacco Use Start: Unknown Patient denies history of smoking Allergies, Adverse Reactions, Alerts Active Allergies Reaction Severity Comments Date NKDA 11/16/2012 Pollen 06/13/2015 Medications Active Medications SIG Qnty Indications Ordering Date Provider Ofloxacin (Ophthalmic) 1 drop right eye 1units H25.813 Meet Moore MD four times daily 0.3% Solution for 10 days beginning three days prior to the operation Prednisolone Acetate 1 drop right eye 5ml H25.813 Meet Moore MD 2018 1% four times daily Suspension for four weeks; please begin after surgery Ketorolac Tromethamine 1 drop operative 5units H25.813 Meet Moore MD eye 4 times daily 0.5% Solution for 2 weeks; please begin 3 days prior to operation Antacid 1 po bid (400 Meet Moore MD 04/07/2019 Chewtabs mgs) Doxycycline Hyclate 1 tab by mouth 20tabs Meet Moore MD 04/07/2019 100mg twice a day Tablets DR Figueroa 1 tabl by mouth 90tabs Nini, 02/15/2016 1mg Tablets every day DO Cindy Simvastatin 1 qpm Unknown 20mg Tablets Vitamin D-3 1 qam Unknown 1000Unit Capsules Vitamin B-12 2 qd Unknown 1000mg L-Lysine 1 tab daily Unknown 1000mg Tablets Lisinopril-Hydrochloro 1 by mouth every Unknown thiazide day 10-12.5mg Tablets Lecithin take 1 tab po Unknown 1200mg Capsules daily Sulfacetamide Sodium Unknown (Acne) 10% Lotion Immunizations Description No Information Available Vital Signs Date Vital Result Comment 02/21/2019 3:34pm BP Systolic 118 mmHg BP Diastolic 75 mmHg Body Temperature 98.7 F Heart Rate 68 /min Respiratory Rate 16 /min Weight 145.25 lb O2 % BldC Oximetry 99 % Pain Level 0 07/27/2018 3:56pm BP Systolic 112 mmHg BP Diastolic 69 mmHg Body Temperature 96.9 F Heart Rate 66 /min Weight 144.25 lb O2 % BldC Oximetry 100 % Pain Level 0 Results Test Date Facility Test Result H/L Range Note CBS 02/25/2019 [facility] White Blood 5.6 K/uL Normal 3.1-10.7 1 W/Automated [address] [place] [address] [phone] Red Blood Count 4.75 M/uL Normal 3.90-5.40 Hemoglobin 14.5 gm/dL Normal 11.6-15.8 Hematocrit 44.2 % Normal 36.0-46.1 Mean Cell Volume 93.1 fl Normal 80.9-99.0 Mean Corpuscular HGB 30.5 pg Normal 25.9-32.7 Mean Corpuscular HGB Conc 32.8 g/dL Normal 30.8-34.3 Platelet Count 206 K/uL Normal 155-360 Red Cell Distri Width SD 43.7 fl Normal 36-47 Red Cell Distri Width %CV 12.8 % Normal 11.7-14.4 Mean Platelet Volume 9.6 fl Normal 8.9-12.4 Neut% 54.8 % Normal 40.4-72.8 Lymph % 30.8 % Normal 20.0-42.0 [place] % 11.2 % Normal 4.3-13.2 Eo% 2.3 % Normal 0.0-6.6 Bas% 0.5 % Normal 0.0-1.1 Immature Grans 0.4 % Normal 0.0-5.0 NRBC % 0.0 /100WBC < 10/ 100 WBC Neut# 3.08 K/uL Normal 1.8-7.0 Lymph # 1.73 K/uL Normal 1.0-4.0 [place] # 0.63 K/uL Normal 0.3-0.9 Eos # 0.13 K/uL Normal 0.0-0.5 Baso # 0.03 K/uL Normal 0.0-0.1 Immature Grans Absolute 0.02 K/uL NRBC # 0.00 K/uL Comprehensive 02/25/2019 [facility] Glucose 87 mg/dL Normal 74-106 Metabolic Panel [address] [place] [address] [phone] BUN 19 mg/dL High 7-18 Creatinine 0.7 mg/dL Normal 0.6-1.3 Glom Filtration Rate, Estimate >60 mL/min >60 If >60 mL/min >60 2 BUN/Creat 27.1 ratio Sodium 138 mmol/L Normal 136-145 Potassium 3.8 mmol/L Normal 3.5-5.1 Chloride 102 mmol/L Normal 98-107 Carbon Dioxide 25 mmol/L Normal 21-32 Anion Gap 11 mEq/L Normal 8-16 Calcium 9.1 mg/dL Normal 8.5-10.1 Total Protein 7.2 g/dL Normal 6.4-8.2 Albumin 3.7 g/dL Normal 3.4-5.0 Globulin 3.5 g/dL Normal 1.9-4.3 Alb/Glob 1.1 ratio Bilirubin,Total 0.4 mg/dL Normal 0.2-1.0 Sgot/Ast 26 U/L Normal 15-37 SGPT/Alt 29 U/L Normal 12-78 Alkaline Phosphatase 81 U/L Normal 45-117 Laboratory test 02/25/2019 [facility] CA 27.29 22.7 U/mL 0.0-38.6 [address] [place] [address] [phone] Vitamin B12 And 02/25/2019 [facility] Vitamin B12 1941 pg/mL High 193-986 Folate [address] [place] [address] [phone] Folic Acid 16.2 ng/mL Normal 3.1-17.5 Laboratory 02/25/2019 [facility] Vitamin 50.0 30.0-100.0 4 test finding [address] D,25-Hydroxy ng/[place] [address] [phone] Iron-Tibc-%Sat 02/25/2019 [facility] Serum Iron 60 Normal 50-[address] g/[place] [address] [phone] Total Iron Binding Capacity 282 g/dL Normal 250-450 Transferrin %Saturation 21 % Normal 12-57 Laboratory test 02/25/2019 [facility] Ferritin 65 ng/mL Normal 8-252 finding [address] [place] [address] [phone] 1 C50.912 D70.9 2 Note: Persistent reduction for 3 months or more in an eGFR <60 mL/min/1.73 m2 defines CKD. Patients with eGFR values >/=60 mL/min/1.73 m2 may also have CKD if evidence of persistent proteinuria is present. The original MDRD equation for estimated GFR is not valid for patients less than 18 years of age. Additional information may be found at www.kdoqi.org. 3 [employer] Immunochemiluminometric Methodology (ICMA) Values obtained with different assay methods or kits cannot be used interchangeably. Results cannot be interpreted as absolute evidence of the presence or absence of malignant disease. Performed at: RN - [facility] [address] [id number] Quality Assurance Tester: Eden Schmitt MD, Phone: [phone] 4 Vitamin D deficiency has been defined by the [place] of Medicine and an Endocrine Society practice guideline as a level of serum 25-OH vitamin D less than 20 ng/mL (1,2). The Endocrine Society went on to further define vitamin D insufficiency as a level between 21 and 29 ng/mL (2). 1. IOM ([place] of Medicine). 2010. Dietary reference intakes for calcium and D. [place]: The National Academies Press. 2. Obed MF, Golden [place], Jose David FREEMAN, et al. Evaluation, treatment, and prevention of vitamin D deficiency: an Endocrine Society clinical practice guideline. JCEM. 2010; 96(7):1911-30. Performed at: RN - [facility] [address] [id number] Quality Assurance Tester: Eden Schmitt MD, Phone: [phone] Procedures Date Code Description Status 05/31/2019 07839 Ophthalmic Biometry By Partial Coherence Completed Interferometry W/Intra 04/07/2019 98726 Eye Exam New Patient Comprehensive Completed 12/24/2017 [id number] Mammogram Completed 05/28/2017 [id number] Mammogram Completed 04/25/2015 [id number] Mammogram Completed 10/26/2013 [id number] Bone Mineral Density Test Completed 10/26/2009 [id number] Colonoscopy Completed Medical Devices Description No Information Available Encounters Type Date Location Provider Dx Diagnosis Office Visit 02/21/2019 Oncology Office Nini C50.912 Malignant neoplasm 3:30p DO Cindy of unspecified site of left female breast E55.9 Vitamin D deficiency, unspecified E53.9 Vitamin B deficiency, unspecified Assessments Date Code Description Provider 06/09/2019 Z96.1 Presence of intraocular lens Meet Moore MD 05/31/2019 Z01.818 Encounter for other preprocedural examination Meet Moore MD 05/31/2019 H25.813 Combined forms of age-related cataract, Meet Moore MD bilateral 04/07/2019 H25.813 Combined forms of age-related cataract, Meet Moore MD bilateral 02/25/2019 C50.912 Malignant neoplasm of unspecified site of BoDylan mejiat, DO left female breast 02/25/2019 C50.912 Malignant neoplasm of unspecified site of Oncology Nurse left female breast 02/25/2019 D70.9 Neutropenia, unspecified BoDylan mejiat, DO 02/25/2019 D70.9 Neutropenia, unspecified Oncology Nurse 02/21/2019 C50.912 Malignant neoplasm of unspecified site of Cindy Terrazas, DO left female breast 02/21/2019 E55.9 Vitamin D deficiency, unspecified Boufal, Cindy, DO 02/21/2019 E53.9 Vitamin B deficiency, unspecified Cindy Terrazas DO Plan of Treatment Future Appointment(s):06/16/2019 8:45 am - Meet Moore MD at [facility]/ 04/2019 3:30 pm - Cindy Terrazas DO at Oncology Jxwgfn5105/31/2019 - Meet Moore MDZ01.818 Encounter for other preprocedural uzerbsubkzwR05.813 Combined forms of age-related cataract, bilateralNew Medication:Ofloxacin (Ophthalmic) 0.3 % - 1 drop right eye four times daily for 10 days beginning three days prior to the operationPrednisolone Acetate 1 % - 1 drop right eye four times daily for four weeks; please begin after surgeryKetorolac Tromethamine 0.5 % - 1 drop operative eye 4 times daily for 2 weeks; please begin 3 days prior to operationComments:- visually significant and bothersome cataract, right eye- discussed risks, benefits, alternatives to cataract surgery including infection , hemorrhage, vision loss, blindness, additional surgery, RD- aim to optimize distance vision- potential need for glasses at distance and near- ofloxacin 1 drop operative eye QID beginning three days prior to surgery- ketorolac 1 drop operative eye QID beginning three days prior to surgery- prednisolone 1 drop operative eye QID beginning after surgery- pt opts to undergo cataract extraction, iol right eyeIOL measurements: performed iol master Functional Status Description No Information Available Mental Status Description No Information Available Referrals Description No Information Available
--- OUTSIDE RECORDS SUMMARY | 2019-06-13 10:27 | XMS REPORT | Continuity of Care Document ---
:1950 External Reference #:[id number] Author Name Meet Moore MD Address [address] [place] [address] Care Team Providers Name Role Phone Catia Cordova N.P. 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 Unavailable Problems Active Problems Provider Date Malignant neoplasm of female breast Cindy Terrazas DO Onset: 06/26/2015 Vitamin B deficiency Cnidy Terrazas DO Onset: 02/21/2019 Vitamin D deficiency Cindy Terrazas DO Onset: 02/21/2019 Dystrophia unguium Cindy Terrazas DO Onset: 07/27/2018 Social History Type Date Description Comments Sex Unknown Tobacco Use Start: Unknown Never Smoked Cigarettes Smoking Status Reviewed: 04/07/19 Never Smoked Cigarettes ETOH Use Currently consumes alcohol socially Tobacco Use Start: Unknown Patient denies history of smoking Allergies, Adverse Reactions, Alerts Active Allergies Reaction Severity Comments Date NKDA 11/16/2012 Pollen 06/13/2015 Medications Active Medications SIG Qnty Indications Ordering Provider Date Antacid 1 po bid (400 Meet Moore MD 04/07/2019 Chewtabs mgs) Doxycycline Hyclate 1 tab by mouth 20tabs Meet Moore MD 04/07/2019 100mg twice a day Tablets Arimidex 1 tabl by mouth 90tabs Cindy Terrazas, 02/15/2016 1mg Tablets every day DO Simvastatin 1 qpm Unknown 20mg Tablets Vitamin D-3 1 qam Unknown 1000Unit Capsules Vitamin B-12 2 qd Unknown 1000mg L-Lysine 1 tab daily Unknown 1000mg Tablets Lisinopril-Hydrochlorot 1 by mouth Unknown hiazide every day 10-12.5mg Tablets Lecithin take 1 tab [...] 1 W/Automated [address] [place] [address] [phone] Red Blood Count 4.75 M/uL Normal 3.90-5.40 [...] 40.4-72.8 Lymph % 30.8 % Normal 20.0-42.0 [place] % 11.2 % Normal 4.3-13.2 Eo% 2.3 % Normal 0.0-6.6 Bas% 0.5 % Normal 0.0-1.1 Immature Grans 0.4 % Normal 0.0-5.0 NRBC % 0.0 /100WBC < 10/ 100 WBC Neut# 3.08 K/uL Normal 1.8-7.0 Lymph # 1.73 K/uL Normal 1.0-4.0 [place] # 0.63 K/uL Normal 0.3-0.9 Eos # 0.13 K/uL Normal 0.0-0.5 Baso # 0.03 K/uL Normal 0.0-0.1 Immature Grans Absolute 0.02 K/uL NRBC # 0.00 K/uL Comprehensive 02/25/2019 [facility] Glucose 87 mg/dL Normal 74-106 Metabolic Panel [address] [place], [place] [address] [phone] BUN 19 mg/dL High 7-18 Creatinine 0.7 [...] 81 U/L Normal 45-117 Laboratory test 02/25/2019 [facility] CA 27.29 22.7 U/mL 0.0-38.6 3 finding [address] [place], [place] [id number] [phone] Vitamin B12 And 02/25/2019 [facility] Vitamin B12 1941 pg/mL High 193-986 Folate [address] [place], [place] [address] [phone] Folic Acid 16.2 ng/mL Normal 3.1-17.5 Laboratory 02/25/2019 [facility] Vitamin 50.0 30.0-100.0 4 test finding [address] [facility] D,25-Hydroxy ng/mL [place], [place] [address] [phone] Iron-Tibc-%Sat 02/25/2019 [facility] Serum Iron 60 Normal 50-[address] g/[place] [address] [phone] Total Iron Binding Capacity 282 g/dL Normal 250-450 Transferrin %Saturation 21 % Normal 12-57 Laboratory test 02/25/2019 [facility] Ferritin 65 ng/mL Normal 8-[address] [place] [address] [phone] 1 C50.912 D70.9 2 Note: Persistent reduction [...] information may be found at www.kdoqi.org. 3 [employer] Immunochemiluminometric Methodology (ICMA) Values obtained with different assay methods or kits cannot be used interchangeably. Results cannot be interpreted as absolute evidence of the presence or absence of malignant disease. Performed at: - [facility] [address] [id number] Canary Raiser: Eden Schmitt MD, Phone: [phone] 4 Vitamin D deficiency has been defined by the [place] of Medicine and an Endocrine Society practice guideline as a level of serum 25-OH vitamin D less than 20 ng/mL (1,2). The Endocrine Society went on to further define vitamin D insufficiency as a level between 21 and 29 ng/mL (2). 1. IOM ([place] of Medicine). 2010. Dietary reference intakes for calcium and D. [place]: The National Academies Press. 2. Obed MF, Golden [place], Jose David FREEMAN, et al. Evaluation, treatment, and prevention of vitamin D deficiency: an Endocrine Society clinical practice guideline. JCEM. 2010; 96(7):1911-30. Performed at: [facility] [id number] Canary Raiser: Eden Schmitt MD, Phone: [phone] Procedures Date Code Description Status 04/07/2019 07027 Eye Exam New Patient Comprehensive Completed 12/24/2017 [id number] Mammogram Completed 05/28/2017 [id number] Mammogram Completed 04/25/2015 [id number] Mammogram Completed 10/26/2013 [id number] Bone Mineral Density Test Completed 10/26/2009 [id number] Colonoscopy Completed Medical Devices Description No Information Available Encounters Type Date Location Provider Dx Diagnosis Office Visit 02/21/2019 Oncology Office Nini, C50.912 Malignant neoplasm 3:30p Cindy, DO of unspecified site of left female breast E55.9 Vitamin D deficiency, unspecified E53.9 Vitamin B deficiency, unspecified Assessments Date Code Description Provider 04/07/2019 H25.813 Combined forms of age-related cataract, Meet Moore MD bilateral 02/25/2019 C50.912 Malignant neoplasm of unspecified site of Boufal, Cindy, DO left female breast 02/25/2019 C50.912 Malignant neoplasm of unspecified site of Oncology Nurse left female breast 02/25/2019 D70.9 Neutropenia, unspecified Boufal, Cindy, DO 02/25/2019 D70.9 Neutropenia, unspecified Oncology Nurse 02/21/2019 C50.912 Malignant neoplasm of unspecified site of Boufal, Cindy, DO left female breast 02/21/2019 E55.9 Vitamin D deficiency, unspecified Boufal, Cindy, DO 02/21/2019 E53.9 Vitamin B deficiency, unspecified Boufal, Cindy, DO Plan of Treatment Future Appointment(s):06/08/2019 7:30 am - Meet Moore MD at Operating Room 3:30 pm - Cindy Terrazas DO at Oncology Office Functional Status Description No Information Available Mental Status Description No Information Available Referrals Description No Information Available
--- OUTSIDE RECORDS SUMMARY | 2019-06-13 10:27 | XMS REPORT | Continuity of Care Document ---
:1950 External Reference #:[id number] Author Name Meet Moore MD Address [address] [place] [address] Care Team Providers Name Role Phone Catia Cordova N.P. 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 Problems Active Problems Provider Date Malignant [...] 1 W/Automated [address] [place] [address] [phone] Red Blood Count 4.75 M/uL Normal 3.90-5.40 [...] 40.4-72.8 Lymph % 30.8 % Normal 20.0-42.0 [place] % 11.2 % Normal 4.3-13.2 Eo% 2.3 % Normal 0.0-6.6 Bas% 0.5 % Normal 0.0-1.1 Immature Grans 0.4 % Normal 0.0-5.0 NRBC % 0.0 /100WBC < 10/ 100 WBC Neut# 3.08 K/uL Normal 1.8-7.0 Lymph # 1.73 K/uL Normal 1.0-4.0 [place] # 0.63 K/uL Normal 0.3-0.9 Eos # 0.13 K/uL Normal 0.0-0.5 Baso # 0.03 K/uL Normal 0.0-0.1 Immature Grans Absolute 0.02 K/uL NRBC # 0.00 K/uL Comprehensive 02/25/2019 [facility] Glucose 87 mg/dL Normal 74-106 Metabolic Panel [address] [place] [address] [phone] BUN 19 mg/dL High 7-18 Creatinine 0.7 [...] U/mL 0.0-38.6 [address] [place] [address] [phone] Vitamin B12 And 02/25/2019 [facility] Vitamin B12 1941 pg/mL High 193-986 Folate [address] [place] [address] [phone] Folic Acid 16.2 ng/mL Normal 3.1-17.5 Laboratory 02/25/2019 [facility] Vitamin 50.0 30.0-100.0 4 test finding [address] D,25-Hydroxy ng/[place] [address] [phone] Iron-Tibc-%Sat 02/25/2019 [facility] Serum Iron 60 Normal 50-[address] g/[place] [address] [phone] Total Iron Binding Capacity 282 g/dL Normal 250-450 Transferrin %Saturation 21 % Normal 12-57 Laboratory test 02/25/2019 [facility] Ferritin 65 ng/mL Normal 8-252 finding [address] [address] [phone] 1 C50.912 D70.9 2 Note: Persistent reduction [...] may be found at www.kdoqi.org. 3 [employer] Immunochemiluminometric Methodology (ICMA) Values obtained with different assay methods or kits cannot be used interchangeably. Results cannot be interpreted as absolute evidence of the presence or absence of malignant disease. Performed at: RN - [facility] [address] [id number] Color Stripper: Eden Schmitt MD, Phone: [phone] 4 Vitamin D deficiency has been defined by the [place] of Medicine and an Endocrine Society practice guideline as a level of serum 25-OH vitamin D less than 20 ng/mL (1,2). The Endocrine Society went on to further define vitamin D insufficiency as a level between 21 and 29 ng/mL (2). 1. IOM ([place] of Medicine). 2010. Dietary reference intakes for calcium and D. [place]: The National Academies Press. 2. Obed MF, Golden [place], Jose David FREEMAN, et al. Evaluation, treatment, and prevention of vitamin D deficiency: an Endocrine Society clinical practice guideline. JCEM. 2010; 96(7):1911-30. Performed at: RN - [facility] [address] [id number] Color Stripper: Eden Schmitt MD, Phone: [phone] Procedures Date Code Description Status 05/31/2019 20043 Ophthalmic Biometry By Partial Coherence Completed Interferometry W/Intra 04/07/2019 04339 Eye Exam New Patient Comprehensive Completed 12/24/2017 [id number] Mammogram Completed 05/28/2017 [id number] Mammogram Completed 04/25/2015 [id number] Mammogram Completed 10/26/2013 [id number] Bone Mineral Density Test Completed 10/26/2009 [id number] Colonoscopy Completed Medical Devices Description No Information Available Encounters Type Date Location Provider Dx Diagnosis Office Visit 02/21/2019 Oncology Office Nini, C50.912 Malignant neoplasm 3:30p Cindy, DO of unspecified site of left female breast E55.9 Vitamin D deficiency, unspecified E53.9 Vitamin B deficiency, unspecified Assessments Date Code Description Provider 05/31/2019 Z01.818 Encounter for other preprocedural examination [...] Cindy Terrazas DO Plan of Treatment Future Appointment(s):08/29/2019 3:30 pm - Cindy Terrazas DO at Oncology Office Functional Status Description No Information Available Mental Status Description No Information Available Referrals Description No Information Available
[2019-06-13 10:29] VITALS: BP 140/74
--- NOTE | 2019-06-13 11:25 | UC ---
Skin Complaint HPI - HPI Summary HPI Summary: 3 WEEKS AGO WHILE VACATIONING IN [facility] WAS WALKING OUTSIDE WHEN SHE NOTICED HER TOES FELT LIKE THEY WERE GETTING SUNBURNED. SHE HAS HAD PERSISTENT AREAS OF REDNESS ON HER TOES SINCE THEN. SHE WILL GET OCCASIONAL SHARP STABBING PAINS IN HER TOES SINCE ONSET OF THESE SPOTS. NO JOINT PAIN OR SWELLING. NOT TENDER TO TOUCH. NO RECENT CHANGES IN MEDICATION ALTHOUGH SHE DOES TAKE ARIMIDEX FOR BREAST CANCER SINCE 2016 AND HAS BEEN ON DOXYCYCLINE 100 MG TWICE DAILY SINCE FEBRUARY 2019 FOR ADULT ACNE. NO RASHES ANYWHERE ELSE. NO FEVER. 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 Onset/Duration: Gradual Onset, Lasting Weeks, Still Present Timing: Constant Onset Severity: Moderate Current Severity: Moderate Pain Intensity: 8 Pain Scale Used: 0-10 Numeric Character: Redness, Painful Aggravating Factor(s): Nothing Alleviating Factor(s): Nothing Associated Signs & Symptoms: Positive: Rash - Allergy/Home Medications Allergies/Adverse Reactions: Allergies Allergy/AdvReac Type Severity Reaction Status Date / Time No Known Allergies Allergy Verified 06/13/19 10:29 PMH/Surg Hx/FS Hx/Imm Hx - Additional Past Medical History Additional PMH: ADULT ACNE ON 100MG DOXY BID SINCE 02/2019 Cancer History: Breast Cancer - Surgical History Surgical History: Yes Surgery Procedure, Year, and Place: LEFT Breast partial mastectomy. cataract surgery - Family History Known Family History: Positive: Cardiac Disease - CHF, Hypertension, Other - sister has MS, other sister is prehypertensive Negative: Diabetes - Social History Alcohol Use: Rare Substance Use Type: None Smoking Status (MU): Never Smoked Tobacco Review of Systems All Other Systems Reviewed And Are Negative: Yes Constitutional: Positive: Negative Skin: Positive: Rash Respiratory: Positive: Negative Cardiovascular: Positive: Negative Gastrointestinal: Positive: Negative Musculoskeletal: Positive: Negative Physical Exam Triage Information Reviewed: Yes Appearance: Well-Appearing, No Pain Distress, Well-Nourished Vital Signs: Initial Vital Signs Temp 98 F 06/13/19 10:26 Pulse 82 06/13/19 10:26 Resp 18 06/13/19 10:26 BP 140/74 06/13/19 10:26 Pulse Ox 100 06/13/19 10:26 Vital Signs Reviewed: Yes Eyes: Positive: Conjunctiva Clear ENT: Positive: Hearing grossly normal Neck: Positive: Supple Respiratory: Positive: No respiratory distress, No accessory muscle use Cardiovascular: Positive: Pulses Normal Abdomen Description: Positive: Soft Musculoskeletal: Positive: ROM Intact, No Edema, Other: - NO BONY OR SOFT TISSUE TENDERNESS OVER TOES Neurological: Positive: Alert Psychological: Positive: Age Appropriate Behavior Skin: Positive: Rashes - FLAT AREAS OF BLANCHABLE REDNESS SCATTERED OVER TOES LEFT 1ST-5TH, RIGHT 1ST AND 2ND. Course/Dx - Course Course Of Treatment: PATIENT PRESENTS WITH NONTENDER RED SPOTS ON HER TOES FOR THE PAST 3 WEEKS SINCE WALKING AROUND IN THE SUN IN [facility]. SHE IS ON DOXYCYCLINE SO THIS COULD BE A PHOTOTOXIC REACTION SHE HAD SUNSCREEN ON EVERY OTHER PART OF HER EXPOSED SKIN. HOWEVER SHE HAS BEEN ON THIS MEDICATION ALL SUMMER AND HAS NOT HAD ANY PREVIOUS INCIDENTS. IT COULD ALSO BE RELATED TO A VASCULITIC CONDITION OR SOME AUTOIMMUNE/PLATELET DISORDER. WILL ORDER CBC, CMP AND TIESHA FOR FURTHER EVALUATION. 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 - Diagnoses Provider Diagnosis: Dermatitis Discharge - Sign-Out/Discharge Documenting (check all that apply): Patient Departure All imaging exams completed and their final reports reviewed: No Studies - Discharge Plan Condition: Stable Disposition: HOME Patient Education Materials: Dermatitis (ED) Referrals: Catia Cordova NP [Primary Care Provider] - 2 Weeks Additional Instructions: UNCLEAR ETIOLOGY OF THE RASH ON YOUR TOES. IT COULD BE A PHOTOTOXIC REACTION GIVEN YOUR SUN EXPOSURE AND REGULAR INTAKE OF DOXYCYCLINE. I AM ALSO CONCERNED ABOUT A POSSIBLE VASCULITIS OR AUTOIMMUNE/PLATELET CONDITION. LABS DRAWN TODAY WILL INCLUDE A BLOOD COUNT, METABOLIC PANEL AND AUTOIMMUNE SCREENING LAB. WE WILL CALL YOU WITH ANY ABNORMAL RESULTS. I RECOMMEND YOU FOLLOW-UP WITH YOUR ROLL OVER PRESS OPERATOR THIS WEEK FOR FURTHER EVALUATION. GO TO THE ER WITHOUT FAIL IF YOU DEVELOP UNEXPLAINED BRUISING OR RASH ANYWHERE ELSE ON YOUR BODY. - Billing Disposition and Condition Condition: STABLE Disposition: Home
[2019-06-13 15:48] LABS: ABS Eosinophils 0.1 10^3/ul (0-0.6); ABS Lymphocytes 1.5 10^3/ul (1.0-4.8); ABS Monocytes 0.6 10^3/ul (0-0.8); ABS Neutrophils 3.9 10^3/ul (1.5-7.7); Eosinophil % 1.1 %; Hematocrit 46 % (35-47); Hemoglobin 15.2 g/dL (12.0-16.0); Lymphocyte % 24.3 %; Mean Corpuscular HGB Conc 33 g/dL (31-36); Mean Corpuscular Hemoglobin 30 pg (27-31); Mean Corpuscular Volume 92 fL (80-97); Mean Platelet Volume 7.6 fL (7.4-10.4); Platelet Count 224 10^3/uL (150-450); Red Cell Distribution Width 14 % (10-15)
[2019-06-13 15:58] LABS: Albumin 4.6 g/dL (3.2-5.2); Calcium 10.5 mg/dL (8.6-10.3); Potassium 3.9 mmol/L (3.5-5.0); Total Bilirubin 0.5 mg/dL (0.2-1.0)
[2019-06-13 16:04] LABS: Albumin/Globulin Ratio 1.8 (1-3); BUN/Creatinine Ratio 24.2 (8-20); EGFR African American 106.8 (>60); EGFR Non-African American 88.3 (>60); Globulin 2.5 g/dL (2-4); Total Protein 7.1 g/dL (6.4-8.9)
== END 2019-06-13 12:13 | disposition home or self-care (01) ==
LOC: UCEAST 10:22
DX: L30.9 Dermatitis, unspecified (principal); Z85.3 Personal history of malignant neoplasm of breast
CPT/HCPCS: 36415; 80053; 85025; 86038; 99211; G0463